=== PATIENT | male | born 1985 | race Caucasian/White ===

== ENCOUNTER 2019-08-31 13:35 | Emergency (ER) | payer SELFPAY ==
[2019-08-31] VITALS (7 sets, daily range): BP systolic 124–137; BP diastolic 71–91; PULSE 107–128; RESP 20; TEMP 37–37.2; O2SAT 97–100; BMI 43.4
--- NOTE | 2019-08-31 13:47 | XR_ITS ---
WS: [id number] PORTABLE CHEST HISTORY: cough and fever COMPARISON: 08/22/2016 Lungs are clear and well expanded. No pleural effusion or pneumothorax. Cardiac size: Normal. Mediastinum/Aorta: Normal mediastinum. No osseous abnormality seen. XR/XR chest 1V portable [id number] IMPRESSION: Unremarkable portable chest.
--- NOTE | 2019-08-31 13:48 | W.ED.FEVER ---
Documented by User: HAVEN Pena 09/03/19 17:49 HPI - Fever General: Chief Complaint: Fever Stated Complaint: fever Time Seen by Provider: 08/31/19 13:41 History of Present Illness: HPI Narrative: Patient is a 33-year-old male who comes to the ED with fever/chills and body aches that started 2 days ago. He was not able to measure his fever temperatures at home so they are subjective. sore throat for the past couple days as well along with fatigue and sleepiness. Denies any nasal congestion, cough, shortness of breath, nausea, vomiting, abdominal pain, dysuria, hematuria, diarrhea or constipation. Patient also states that he removed a tick on his abdomen this morning. He wanted to let me know that just in case that might be relevant. He was unsure how long the tick had been there and he says when he first pulled it out some of the tick was still embedded in his skin and he had to pull the other part out afterwards. Associated symptoms: Reports chills; Deny abdominal pain, back/flank pain, chest pain, diarrhea, dysuria, headache(s), nasal congestion, nausea or vomiting Review of Systems Const: Reports: fever, chills, body aches and fatigue Eyes: Denies: change in vision or eye discomfort ENMT: Reports: throat pain and enlarged tonsils; Denies: painful swallowing, nasal discharge or nasal congestion Card: Denies: chest pain, palpitations, edema, swelling of feet/ankles, shortness of breath on exertion or shortness of breath when lying down Resp: Denies: shortness of breath, productive cough or non-productive cough GI: Denies: abdominal pain, nausea, vomiting, diarrhea, constipation or blood in stool : Denies: flank pain, difficulty urinating, painful urination or blood in urine Musc: Denies: neck pain, back pain or extremity swelling Skin/Breast: Reports: new lesion (tick bite); Denies: rash Neuro: Denies: headache, numbness in extremities or weakness in extremities PFSH ED PFSH: Social History Smoking and tobacco status: former smoker Physical Exam Const: COMMON NORMALS: oriented x3 HENMT: COMMON NORMALS: normocephalic HEAD & SCALP: normocephalic MOUTH: oral and palatal mucosa normal THROAT: tonsils abnormal bilateral erythema, exudates and hypertrophy and posterior oropharynx abnormal edema and erythema Neck/C-Spine: COMMON NORMALS: supple GENERAL: Yes normal visual inspection Lymph: LYMPHATIC: lymphadenopathy (Mild to moderate anterior cervical nodes palpated?tender) Resp: COMMON NORMALS: normal respiratory effort, no retractions, no use of accessory muscles and clear to auscultation bilaterally AUSCULTATION: clear to auscultation bilaterally Cardio: COMMON NORMALS: regular rate, regular rhythm, S1 normal heart sound, S2 normal heart sound, no gallops, no clicks, no murmurs and peripheral pulses 2+ throughout RATE: regular rate RHYTHM: regular rhythm HEART SOUNDS: S1 normal and S2 normal PERIPHERAL PULSES: pulses 2+ throughout GI: COMMON NORMALS: normal to inspection, nondistended, normoactive bowel sounds, soft to palpation, non-tender and no masses PALPATION: Yes soft : COMMON NORMALS: Yes no CVA tenderness BLADDER/KIDNEY EXAM: Yes no CVA tenderness Back/Pelvis: COMMON NORMALS: no CVA tenderness Extremity: COMMON NORMALS: normal to inspection and normal capillary refill Neuro: COMMON NORMALS: oriented x3 and moves all extremities Skin: COMMON NORMALS: no rashes or lesions noted GENERAL SKIN EXAM: no rashes or lesions noted TRAUMA: other (Tick bite area?red bump present) OTHER: Erythema of the skin is extensive in the abdomen and appears to be due skin folds. Patient states the redness on abdomen where the skin fold is is not new and existed before tick bite. Course Consultations: Consultation #1: I consulted [facility] and spoke with Dr. Candelaria about patient's case and CT findings. She said surgery is not recommended and needed for this patient. She informed me to give patient IV antibiotics and steroid while here in the ED. she also wanted me to send patient home on clindamycin and Medrol Dosepak. She told me to have patient call [facility] ENT office to set up telephone checkup in a couple days. Time: 17:39 Vital Signs: Vital signs: Vital Signs Temperature 98.6 F 08/31/19 17:07 Pulse Rate 110 H 08/31/19 17:07 Respiratory Rate 20 H 08/31/19 13:43 Blood Pressure 124/71 08/31/19 17:07 Pulse Oximetry 100 08/31/19 17:07 MDM - Fever MDM Narrative: Medical decision making narrative: Patient is a 33-year-old male who comes into the ED with a sore throat. CBC was remarkable for a white blood cell count of 16.9. Influenza negative, mono negative and strep negative. CT of the neck was performed and showed 1. RIGHT peritonsillar bed phlegmon measuring 2.0 x 1.2 cm. 2. Significant bilateral cervical chain lymphadenopathy. Most significantly enlarged lymph nodes are at level 2 bilaterally. I consulted [facility] and spoke with Dr. Candelaria and she advised me on giving patient IV clindamycin and IV steroids while here in the ED. She told me to send patient home with a prescription for clindamycin and a Medrol pack. Dr. Candelaria also told me to have patient contact [facility] office tomorrow morning to set up a phone follow-up appointment to see how patient is doing. I gave patient contact information for [facility] and told him about the plan. He understood and agreed with plan. Lab Data: Labs: Lab Results 08/31/19 08/31/19 08/31/19 Range/Units 13:59 13:59 13:59 WBC 16.9 H (4.0-10.0) 10^3/ uL RBC 4.93 (4.1-5.3) 10^6/u L Hgb 14.6 (11.7-16.6) g/dL Hct 45.6 (42.0-52.0) % MCV 92.5 (80-94) fL MCH 29.6 (28.0-34.0) pg MCHC 32.0 (30.0-36.0) g/dL RDW 12.9 (12.1-15.1) % Plt Count 294 (130-400) 10^3/c mm MPV 10.8 H (7.4-10.4) fL Neut % (Auto) 69.2 % Lymph % (Auto) 17.7 % [place] % (Auto) 10.7 % Eos % (Auto) 1.6 % Baso % (Auto) 0.4 % Neut # (Auto) 11.7 H (1.8-7.7) 10^3/u L Lymph # (Auto) 3.0 (0.8-4.8) 10^3/u L [place] # (Auto) 1.8 H (0.2-0.9) 10^3/u L Eos # (Auto) 0.3 (0.0-0.8) 10^3/u L Baso # (Auto) 0.1 (0.0-0.1) 10^3/u L Nucleated RBC % (a uto) 0 % Nucleated RBCs # 0.0 /100WBC Sodium 137 (136-145) mmol/L Potassium 3.7 (3.5-5.1) mmol/L Chloride 101 (98-107) mmol/L Carbon Dioxide 23 (22-29) mmol/L Anion Gap 16.7 (5-19) BUN 8 (6-20) mg/dL Creatinine 1.0 (0.7-1.2) mg/dL GFR Calculation 85.5 L (90-130) mL/min Glucose 99 (65-115) mg/dL Calculated Osmolal ity 280 L (285-295) mOsm/k g Calcium 9.3 (8.5-10.5) mg/dL Total Bilirubin 0.8 (0.15-1.2) mg/dL AST 40 (0-40) U/L ALT 41 (0-41) U/L Alkaline Phosphata se 113 (40-130) IU/L Total Protein 6.7 (6.6-8.7) g/dL Albumin 3.7 (3.5-5.2) g/dL Globulin 3.0 (1.3-4.6) g/dL Lyme Ab (Western B lot) index Monoscreen Negative (Negative) Influenza Type A A g (Negative) Influenza Type B A g (Negative) Group A Strep Rapi d (Negative) 08/31/19 08/31/19 08/31/19 Range/Units 13:59 14:04 14:04 WBC (4.0-10.0) 10^3/ uL RBC (4.1-5.3) 10^6/u L Hgb (11.7-16.6) g/dL Hct (42.0-52.0) % MCV (80-94) fL MCH (28.0-34.0) pg MCHC (30.0-36.0) g/dL RDW (12.1-15.1) % Plt Count (130-400) 10^3/c mm MPV (7.4-10.4) fL Neut % (Auto) % Lymph % (Auto) % [place] % (Auto) % Eos % (Auto) % Baso % (Auto) % Neut # (Auto) (1.8-7.7) 10^3/u L Lymph # (Auto) (0.8-4.8) 10^3/u L [place] # (Auto) (0.2-0.9) 10^3/u L Eos # (Auto) (0.0-0.8) 10^3/u L Baso # (Auto) (0.0-0.1) 10^3/u L Nucleated RBC % (a uto) % Nucleated RBCs # /100WBC Sodium (136-145) mmol/L Potassium (3.5-5.1) mmol/L Chloride (98-107) mmol/L Carbon Dioxide (22-29) mmol/L Anion Gap (5-19) BUN (6-20) mg/dL Creatinine (0.7-1.2) mg/dL GFR Calculation (90-130) mL/min Glucose (65-115) mg/dL Calculated Osmolal ity (285-295) mOsm/k g Calcium (8.5-10.5) mg/dL Total Bilirubin (0.15-1.2) mg/dL AST (0-40) U/L ALT (0-41) U/L Alkaline Phosphata se (40-130) IU/L Total Protein (6.6-8.7) g/dL Albumin (3.5-5.2) g/dL Globulin (1.3-4.6) g/dL Lyme Ab (Western B lot) <0.90 index Monoscreen (Negative) Influenza Type A A g Negative (Negative) Influenza Type B A g Negative (Negative) Group A Strep Rapi d Negative (Negative) Imaging Data^: CXR: Attestation: I personally reviewed and interpreted this imaging study as follows: Radiologist's impression: [facility] of [address] [address] XRay Report Signed Patient: Rohan Miles Unit #: [id number] : 1985 Age/Sex: 33 / M ADM Date: 08/31/19 Loc: ER Room/Bed: Attending Dr: Ordering Provider/Ordering MD: James Denson Date of Service: 08/31/19 Procedure(s): XR chest 1V portable [id number] Accession Number(s): [id number] Report Number: [id number] WS: [id number] PORTABLE CHEST HISTORY: cough and fever COMPARISON: 08/22/2016 Lungs are clear and well expanded. No pleural effusion or pneumothorax. Cardiac size: Normal. Mediastinum/Aorta: Normal mediastinum. No osseous abnormality seen. XR/XR chest 1V portable [id number] IMPRESSION: Unremarkable portable chest. Dictated By: Supriya Duvall DO Signed By: Supriya Duvall DO Signed Date/Time: 08/31/191403 DD/ [address]: Attestation: I personally reviewed and interpreted this imaging study as follows: Radiologist's impression: [place] [address] CT Scan Report Signed Patient: Rohan Miles Unit #: [id number] : 1985 Age/Sex: 33 / M ADM Date: 08/31/19 Loc: ER Room/Bed: Attending Dr: Ordering Provider/Ordering MD: James Denson Date of Service: 08/31/19 Procedure(s): CT neck w con* [id number] Accession Number(s): [id number] Report Number: [id number] WS: [id number] CT NECK WITH CONTRAST HISTORY: swelling and tenderness TECHNIQUE: Contiguous 5 mm axial images are performed through the neck with intravenous contrast. Sagittal and coronal reformats are also submitted. All CT scans at [facility] use at least one of these dose optimization techniques: automated exposure control; mA and/or kV adjustment per patient size (includes targeted exams where dose is matched to clinical indication); or iterative reconstruction. CONTRAST: CONTRAST: Omnipaque 300; 95 mL IV. DLP: 872.12 mGy.cm COMPARISON: None available. Peritonsillar developing phlegmonous changes on the LEFT. There is an area of low attenuation surrounded by peripheral enhancement. Multiple small foci of low signal representing the developing abscess cavities. Collection measures 2.0 x 1.2 cm. There is mild asymmetry of the airway to enlargement of the LEFT peritonsillar bed. Torus tubarius and fossa of Rosenmuller and parapharyngeal fat are normal. Significant bilateral cervical chain lymphadenopathy. Hyperemic lymph nodes measure up to 1.5 cm at level 2. There are additional enlarged lymph nodes along level 2, 3 and level 5. Thyroid gland and salivary glands are normally enhancing with no masses. Straightening of the normal cervical lordosis. Visualized portions of the skull base demonstrate no abnormalities. Orbits and globes are within normal limits. No soft tissue masses. Mucous retention cyst in the RIGHT maxillary sinus. Smaller mucoperiosteal thickening or cyst at the floor the maxillary sinuses. Lung apices are clear. CT/CT neck w con* [id number] IMPRESSION: 1. RIGHT peritonsillar bed phlegmon measuring 2.0 x 1.2 cm. 2. Significant bilateral cervical chain lymphadenopathy. Most significantly enlarged lymph nodes are at level 2 bilaterally. Dictated By: Supriya Duvall DO Signed By: Supriya Duvall DO Signed Date/Time: 08/31/19 1604 DD/ 1558 Discharge Plan Discharge Patient Disposition: Home, Self-Care Clinical Impression: Peritonsillar cellulitis Condition: Stable Prescriptions: New clindamycin HCl 150 mg capsule 300 mg PO QID 7 Days Qty: 56 RF: 0 Medrol ([place]) 4 mg tablets,dose pack See Rx Instructions .ROUTE .COMPLEX Qty: 21 RF: 0 No Action No Known Home Medications RF: 0 Discharge Orders: Discharge Order (Routine); Ordered 08/31/19 Ordered By: James Denson Discharge Diet: Regular Discharge Activity: Resume usual activity Patient Instructions: Peritonsillar Abscess (ED) Activity Restrictions/Additional Instructions: Call [facility] ENT office tomorrow morning at [phone]. They would like to set up telephone checkup in a couple days. Take full course of antibiotics and steroid as prescribed. Take Tylenol or ibuprofen for fever. Drink plenty of fluids and stay hydrated. Return to the ED if you are having any trouble breathing or worsening symptoms. Discharge Date/Time: 08/31/19 19:01 Coding Level of Care Code ED Solution Manager for Chg Fwd Exam Comprehensive Documented by User: Jairo Reid DO 09/04/19 08:24 HPI - Fever General: Chief Complaint: Fever Stated Complaint: fever Time Seen by Provider: 08/31/19 13:41 PFSH ED PFSH: Social History Smoking and tobacco status: former smoker Course Vital Signs: Vital signs: Vital Signs Temperature 98.6 F 08/31/19 17:07 Pulse Rate 110 H 08/31/19 17:07 Respiratory Rate 20 H 08/31/19 13:43 Blood Pressure 124/71 08/31/19 17:07 Pulse Oximetry 100 08/31/19 17:07 MDM - Fever MDM Narrative: Medical decision making narrative: Reviewed patient with PA. Agree with assessment and plan Lab Data: Labs: Lab Results 08/31/19 08/31/19 08/31/19 Range/Units 13:59 13:59 13:59 WBC 16.9 H (4.0-10.0) 10^3/ uL RBC 4.93 (4.1-5.3) 10^6/u L Hgb 14.6 (11.7-16.6) g/dL Hct 45.6 (42.0-52.0) % MCV 92.5 (80-94) fL MCH 29.6 (28.0-34.0) pg MCHC 32.0 (30.0-36.0) g/dL RDW 12.9 (12.1-15.1) % Plt Count 294 (130-400) 10^3/c mm MPV 10.8 H (7.4-10.4) fL Neut % (Auto) 69.2 % Lymph % (Auto) 17.7 % [place] % (Auto) 10.7 % Eos % (Auto) 1.6 % Baso % (Auto) 0.4 % Neut # (Auto) 11.7 H (1.8-7.7) 10^3/u L Lymph # (Auto) 3.0 (0.8-4.8) 10^3/u L [place] # (Auto) 1.8 H (0.2-0.9) 10^3/u L Eos # (Auto) 0.3 (0.0-0.8) 10^3/u L Baso # (Auto) 0.1 (0.0-0.1) 10^3/u L Nucleated RBC % (a uto) 0 % Nucleated RBCs # 0.0 /100WBC Sodium 137 (136-145) mmol/L Potassium 3.7 (3.5-5.1) mmol/L Chloride 101 (98-107) mmol/L Carbon Dioxide 23 (22-29) mmol/L Anion Gap 16.7 (5-19) BUN 8 (6-20) mg/dL Creatinine 1.0 (0.7-1.2) mg/dL GFR Calculation 85.5 L (90-130) mL/min Glucose 99 (65-115) mg/dL Calculated Osmolal ity 280 L (285-295) mOsm/k g Calcium 9.3 (8.5-10.5) mg/dL Total Bilirubin 0.8 (0.15-1.2) mg/dL AST 40 (0-40) U/L ALT 41 (0-41) U/L Alkaline Phosphata se 113 (40-130) IU/L Total Protein 6.7 (6.6-8.7) g/dL Albumin 3.7 (3.5-5.2) g/dL Globulin 3.0 (1.3-4.6) g/dL Lyme Ab (Western B lot) index Monoscreen Negative (Negative) Influenza Type A A g (Negative) Influenza Type B A g (Negative) Group A Strep Rapi d (Negative) 08/31/19 08/31/19 08/31/19 Range/Units 13:59 14:04 14:04 WBC (4.0-10.0) 10^3/ uL RBC (4.1-5.3) 10^6/u L Hgb (11.7-16.6) g/dL Hct (42.0-52.0) % MCV (80-94) fL MCH (28.0-34.0) pg MCHC (30.0-36.0) g/dL RDW (12.1-15.1) % Plt Count (130-400) 10^3/c mm MPV (7.4-10.4) fL Neut % (Auto) % Lymph % (Auto) % [place] % (Auto) % Eos % (Auto) % Baso % (Auto) % Neut # (Auto) (1.8-7.7) 10^3/u L Lymph # (Auto) (0.8-4.8) 10^3/u L [place] # (Auto) (0.2-0.9) 10^3/u L Eos # (Auto) (0.0-0.8) 10^3/u L Baso # (Auto) (0.0-0.1) 10^3/u L Nucleated RBC % (a uto) % Nucleated RBCs # /100WBC Sodium (136-145) mmol/L Potassium (3.5-5.1) mmol/L Chloride (98-107) mmol/L Carbon Dioxide (22-29) mmol/L Anion Gap (5-19) BUN (6-20) mg/dL Creatinine (0.7-1.2) mg/dL GFR Calculation (90-130) mL/min Glucose (65-115) mg/dL Calculated Osmolal ity (285-295) mOsm/k g Calcium (8.5-10.5) mg/dL Total Bilirubin (0.15-1.2) mg/dL AST (0-40) U/L ALT (0-41) U/L Alkaline Phosphata se (40-130) IU/L Total Protein (6.6-8.7) g/dL Albumin (3.5-5.2) g/dL Globulin (1.3-4.6) g/dL Lyme Ab (Western B lot) <0.90 index Monoscreen (Negative) Influenza Type A A g Negative (Negative) Influenza Type B A g Negative (Negative) Group A Strep Rapi d Negative (Negative) Discharge Plan Discharge Patient Disposition: Home, Self-Care Clinical Impression: Peritonsillar cellulitis Condition: Stable Prescriptions: New clindamycin HCl 150 mg capsule 300 mg PO QID 7 Days Qty: 56 RF: 0 Medrol ([place]) 4 mg tablets,dose pack See Rx Instructions .ROUTE .COMPLEX Qty: 21 RF: 0 No Action No Known Home Medications RF: 0 Discharge Orders: Discharge Order (Routine); Ordered 08/31/19 Ordered By: James Denson Discharge Diet: Regular Discharge Activity: Resume usual activity Patient Instructions: Peritonsillar Abscess (ED) Activity Restrictions/Additional Instructions: Call [facility] ENT office tomorrow morning at [phone]. They would like to set up telephone checkup in a couple days. Take full course of antibiotics and steroid as prescribed. Take Tylenol or ibuprofen for fever. Drink plenty of fluids and stay hydrated. Return to the ED if you are having any trouble breathing or worsening symptoms. Discharge Date/Time: 08/31/19 19:01 Coding Level of Care Code ED Solution Manager for Josh Naranjo Exam Comprehensive
[2019-08-31 14:19] LABS: Basophils # 0.1 10^3/uL (0.0-0.1); Basophils % 0.4 %; Eosinophils # 0.3 10^3/uL (0.0-0.8); Eosinophils % 1.6 %; Hematocrit 45.6 % (42.0-52.0); Hemoglobin 14.6 g/dL (11.7-16.6); Lymphocytes % 17.7 %; Mean Corpuscular Hemoglobin 29.6 pg (28.0-34.0); Mean Corpuscular Volume 92.5 fL (80-94); Mean Platelet Volume 10.8 fL (7.4-10.4); Monocytes # 1.8 10^3/uL (0.2-0.9); Monocytes % 10.7 %; Neutrophils # 11.7 10^3/uL (1.8-7.7); Neutrophils % 69.2 %; Nucleated Red Blood Cells % 0 %; Platelet Count 294 10^3/cmm (130-400); Red Blood Count 4.93 10^6/uL (4.1-5.3); Red Cell Distribution Width 12.9 % (12.1-15.1); White Blood Count 16.9 10^3/uL (4.0-10.0)
--- NOTE | 2019-08-31 14:24 | PC.NURSE ---
Abd sound active, ABD soft not tender.
[2019-08-31 14:35] LABS: Alanine Aminotransferase 41 U/L (0-41); Albumin Level 3.7 g/dL (3.5-5.2); Alkaline Phosphatase 113 IU/L (40-130); Anion Gap 16.7 (5-19); Aspartate Amino Transferase 40 U/L (0-40); Blood Urea Nitrogen 8 mg/dL (6-20); Calcium 9.3 mg/dL (8.5-10.5); Carbon Dioxide 23 mmol/L (22-29); Chloride 101 mmol/L (98-107); Glomerular Filtration Rate 85.5 mL/min (90-130); Glucose 99 mg/dL (65-115); Osmolality Calculated 280 mOsm/kg (285-295); Potassium 3.7 mmol/L (3.5-5.1); Sodium 137 mmol/L (136-145); Total Bilirubin 0.8 mg/dL (0.15-1.2); Total Protein 6.7 g/dL (6.6-8.7)
[2019-08-31] MEDS: acetaminophen 500 mg Tablet PO (14:36)
[2019-08-31 14:40] LABS: Monoscreen Negative (Negative)
[2019-08-31 14:41] LABS: Rapid Strep A Test Negative (Negative)
[2019-08-31 14:52] LABS: Influenza A by IFA Negative (Negative); Influenza B by IFA Negative (Negative)
--- NOTE | 2019-08-31 15:13 | CT_ITS ---
WS: [id number] CT NECK WITH CONTRAST HISTORY: swelling and tenderness TECHNIQUE: Contiguous 5 mm axial images are performed through the neck with intravenous contrast. Sag ittal and coronal reformats are also submitted. All CT scans at [facility] use at least o ne of these dose optimization techniques: automated exposure control; mA and/or kV adjustment per pat ient size (includes targeted exams where dose is matched to clinical indication); or iterative recons truction. CONTRAST: CONTRAST: Omnipaque 300; 95 mL IV. DLP: 872.12 mGy.cm COMPARISON: None available. Peritonsillar developing phlegmonous changes on the LEFT. There is an area of low attenuation surroun ded by peripheral enhancement. Multiple small foci of low signal representing the developing abscess cavities. Collection measures 2.0 x 1.2 cm. There is mild asymmetry of the airway to enlargement of t he LEFT peritonsillar bed. Torus tubarius and fossa of Rosenmuller and parapharyngeal fat are normal. Significant bilateral cervical chain lymphadenopathy. Hyperemic lymph nodes measure up to 1.5 cm at l evel 2. There are additional enlarged lymph nodes along level 2, 3 and level 5. Thyroid gland and salivary glands are normally enhancing with no masses. Straightening of the normal cervical lordosis. Visualized portions of the skull base demonstrate no abnormalities. Orbits and globes are within norm al limits. No soft tissue masses. Mucous retention cyst in the RIGHT maxillary sinus. Smaller mucoperiosteal thickening or cyst at the floor the maxillary sinuses. Lung apices are clear. CT/CT neck w con* [id number] IMPRESSION: 1. RIGHT peritonsillar bed phlegmon measuring 2.0 x 1.2 cm. 2. Significant bilateral cervical chain lymphadenopathy. Most significantly en larged lymph nodes are at level 2 bilaterally.
[2019-08-31] MEDS: iohexol 300 mg/mL 100 mL Btl IV (15:55)
[2019-08-31] MEDS: clindamycin 150 mg Capsule 300 MG PO (17:31)
[2019-08-31] MEDS: doxycycline 100 mg Tablet 200 MG PO (17:32)
[2019-08-31] MEDS: dexamethasone 10 mg/mL INJ IVP (17:39)
[2019-08-31] MEDS: clindamycin 600 MG/50 ML PREMIX 100 MG IV (18:05)
[2019-09-02 13:41] LABS: Lyme AB Screen <0.90 index
[2019-09-04 16:47] LABS: E. Chaffeensis AB IGG <1:64; E. Chaffeensis AB IGM <1:20
[2019-09-07 15:36] LABS: RMSF IGG DETECTED; RMSF IGM NOT DETECTED
== END 2019-08-31 19:01 | disposition home or self-care (01) ==
PROVIDERS: Emergency Provider Physician Assistant
DX: J36 Peritonsillar abscess (principal); Z87.891 Personal history of nicotine dependence
CPT/HCPCS: 12345; 70491; 71045; 80053; 85025; 86308; 86618; 86666; 86757; 87081; 87804; 87880; 96365; 96366; 96374; 96375; 99283; 99284; J1100; J3490; Q9967

== ENCOUNTER 2019-10-11 03:32 | Emergency (ER) | payer SELFPAY ==
[2019-10-11] VITALS (21 sets, daily range): BP systolic 110–145; BP diastolic 67–117; PULSE 73–118; RESP 16–29; TEMP 36.4; O2SAT 90–98; BMI 54.2
--- NOTE | 2019-10-11 03:38 | XR_ITS ---
WS: [id number] PORTABLE CHEST HISTORY: ams COMPARISON: 08/31/2019 Decreased lung volumes. Crowding of the lung markings would probably improve with better inspiration. No pneumonia. No pleural effusion or pneumothorax. Cardiac size: Normal. Mediastinum/Aorta: Normal mediastinum. No osseous abnormality seen. XR/XR chest 1V portable [id number] IMPRESSION: Poor inspiration. Otherwise negative.
--- NOTE | 2019-10-11 03:38 | CTR_ITS ---
PROCEDURE INFORMATION: Exam: CT Head Without Contrast Exam date and time: 10/11/2019 4:00 AM Age: 34 years old Clinical indication: Altered mental status/memory loss; Additional info: AMS TECHNIQUE: Imaging protocol: Computed tomography of the head without contrast. Radiation optimization: All CT scans at this facility use at least one of these dose optimization techniques: automated exposure control; mA and/or kV adjustment per patient size (includes targeted exams where dose is matched to clinical indication); or iterative reconstruction. COMPARISON: No relevant prior studies available. RADIATION DOSE METRICS: Total DLP: 899.57 mGy-cm FINDINGS: Motion degradation. Brain: Normal. No hemorrhage. Unremarkable white matter. No mass effect. Ventricles: Normal. No ventriculomegaly. Bones/joints: Unremarkable. No acute fracture. Sinuses: Focal mucous retention cyst left maxillary sinus. No fluid levels. Mastoid air cells: Partial fluid or soft tissue opacification of the lateral left mastoid air cells with diminished aeration. Soft tissues: Unremarkable. CT/CT head wo con* [id number] IMPRESSION: No acute intracranial abnormality. Radiation Dose CTDIVOL = (mGy): DLP = 899.57 (mGy-cm)
--- NOTE | 2019-10-11 03:39 | ECG_ITS ---
Measurements Intervals [place] Rate: 115 P: 57 SD: 157 QRS: 29 QRSD: 85 T: 49 QT: 310 QTc: 430 SINUS TACHYCARDIA LOW QRS VOLTAGE IN PRECORDIAL LEADS [QRS DEFLECTION < 1.0 mV IN CHEST LEADS] NONSPECIFIC T-WAVE ABNORMALITY ABNORMAL RHYTHM ECG No previous ECG available for comparison Electronically Signed On 10-11-2019 19:44:54 CDT by Sony Enriquez M.D. [email or web address]
--- NOTE | 2019-10-11 03:39 | W.ED.AMS ---
Documented by User: Nicole Melissa MD 10/11/19 05:41 HPI - Altered Mental Status General: Chief Complaint: Shortness of Breath/Dyspnea Stated Complaint: SOB Time Seen by Provider: 10/11/19 03:37 Source: EMS Mode of arrival: EMS Limitations: altered mental status History of Present Illness: HPI narrative: 34-year-old male is here with EMS for altered mental status. Patient was found at a residence as they called patient to become unresponsive. Patient was given Narcan in route and has been vomiting. Patient w will respond to his name but is otherwise altered. Unknown if patient done any drugs or been drinking. No further history is available from patient. complaint: altered mental status Review of Systems General: Reports: ROS unobtainable due to mental status PFSH ED PFSH: Family History Mother Diabetes Social History Smoking and tobacco status: unknown if ever smoked Alcohol intake: current Substance/Drug Use: current Physical Exam Const: COMMON NORMALS: no apparent distress and healthy appearing EXAM LIMITATIONS: altered mental status GENERAL APPEARANCE: disheveled and lethargic ORIENTATION/CONSCIOUSNESS: Yes lethargic; not oriented to person, not oriented to place and not oriented to time HENMT: COMMON NORMALS: normocephalic and head/scalp atraumatic HEAD & SCALP: normocephalic and atraumatic Eye: COMMON NORMALS: PERRL and EOMs intact bilaterally PUPIL: Yes PERRL Neck/C-Spine: COMMON NORMALS: full ROM and supple Chest: COMMONS NORMALS: inspection of chest normal and palpation of chest normal Resp: COMMON NORMALS: normal respiratory effort, no retractions, no use of accessory muscles and clear to auscultation bilaterally AUSCULTATION: clear to auscultation bilaterally Cardio: COMMON NORMALS: regular rate, regular rhythm and no murmurs RATE: regular rate RHYTHM: regular rhythm GI: COMMON NORMALS: normal to inspection, nondistended, normoactive bowel sounds, soft to palpation, non-tender and no masses PALPATION: Yes soft Extremity: COMMON NORMALS: normal to inspection and full ROM Neuro: SENSORIUM/ORIENTATION: No oriented to person, No oriented to place, No oriented to time, Yes orientation impaired and Yes lethargic Psych: APPEARANCE: Yes disheveled Skin: COMMON NORMALS: no rashes or lesions noted and no wounds GENERAL SKIN EXAM: no rashes or lesions noted Course Vital Signs: Vital signs: Vital Signs Temperature 97.6 F 10/11/19 03:34 Pulse Rate 80 10/11/19 10:36 Respiratory Rate 16 10/11/19 10:36 Blood Pressure 113/76 10/11/19 10:36 Pulse Oximetry 98 10/11/19 10:36 MDM - Altered Mental Status MDM Narrative: Medical decision making narrative: 05 patient is now awake and answering all my questions. Patient states that they were doing drugs at his friend's house and states that they were smoking marijuana and wax form. He is unsure if he did any other drugs. Patient is now able answer all my questions appropriately and is a awake and alert x4. He states he does have slight neck pain from his previous peritonsillar abscess. Still pending CT of the head and neck. Patient's care turned over to Dr. Reid to follow urine along with CT head. Lab Data: Labs: Lab Results 10/11/19 10/11/19 10/11/19 Range/Units 03:48 03:48 03:48 WBC 19.2 H (4.0-10.0) 10^3/ uL RBC 5.04 (4.1-5.3) 10^6/u L Hgb 14.8 (11.7-16.6) g/dL Hct 47.2 (42.0-52.0) % MCV 93.7 (80-94) fL MCH 29.4 (28.0-34.0) pg MCHC 31.4 (30.0-36.0) g/dL RDW 13.3 (12.1-15.1) % Plt Count 413 H (130-400) 10^3/c mm MPV 11.6 H (7.4-10.4) fL Neut % (Auto) 71.8 % Lymph % (Auto) 18.2 % [place] % (Auto) 7.5 % Eos % (Auto) 1.3 % Baso % (Auto) 0.4 % Neut # (Auto) 13.8 H (1.8-7.7) 10^3/u L Lymph # (Auto) 3.5 (0.8-4.8) 10^3/u L [place] # (Auto) 1.4 H (0.2-0.9) 10^3/u L Eos # (Auto) 0.2 (0.0-0.8) 10^3/u L Baso # (Auto) 0.1 (0.0-0.1) 10^3/u L Nucleated RBC % (a uto) 0 % Nucleated RBCs # 0.0 /100WBC PT 13.40 H (10.5-13.3) SECO NDS INR 0.99 (0.8-1.2) Specimen Type Sample Site ABG pH (7.35-7.45) ABG pCO2 (35-45) mmHg ABG pO2 (80.0-100.0) mmH g ABG HCO3 (22-26) mmol/L ABG Base Excess (-2.0-2.0) mmol/ L [facility] Test Hematocrit (42-52) % O2 Delivery Device FiO2 % Detention Deputy ID Sodium 139 (136-145) mmol/L Potassium 4.5 (3.5-5.1) mmol/L Chloride 100 (98-107) mmol/L Carbon Dioxide 26 (22-29) mmol/L Anion Gap 17.5 (5-19) BUN 12 (6-20) mg/dL Creatinine 0.8 (0.7-1.2) mg/dL GFR Calculation 110.0 (90-130) mL/min Glucose 165 H (65-115) mg/dL POC Glucose (70-110) mg/dL Calculated Osmolal ity 288 (285-295) mOsm/k g Lactate (0.5-2.2) mmol/L Calcium 10.0 (8.5-10.5) mg/dL Total Bilirubin 0.6 (0.15-1.2) mg/dL AST 17 (0-40) U/L ALT 27 (0-41) U/L Alkaline Phosphata se 121 (40-130) IU/L Ammonia (16-60) umol/L Troponin I 6 Hour (0-15) ng/mL Troponin I Hi Sens Del (0-12) ng/L Troponin T Baselin e (0-15) ng/mL Troponin T 120 Min [place] (0-15) ng/mL Delta Troponin T (0-10) ABS# Total Protein 7.4 (6.6-8.7) g/dL Albumin 4.0 (3.5-5.2) g/dL Globulin 3.4 (1.3-4.6) g/dL Lipase 15 (13-60) U/L Salicylates < 0.3 L (3-10) mg/dL Urine Opiates Scre en (Negative) ng/mL Acetaminophen < 5.0 L (10-30) ug/mL Ur Barbiturates Sc reen (Negative) ng/mL Ur Phencyclidine S crn (Negative) ng/mL Ur Amphetamines Sc reen (Negative) ng/mL U Benzodiazepines Scrn (Negative) ng/mL Urine Cocaine Scre en (Negative) ng/mL U Marijuana (THC) Screen (Negative) ng/mL Ethyl Alcohol < 10 (0-10) mg/dL 10/11/19 10/11/19 10/11/19 Range/Units 03:48 04:00 04:06 WBC (4.0-10.0) 10^3/ uL RBC (4.1-5.3) 10^6/u L Hgb (11.7-16.6) g/dL Hct (42.0-52.0) % MCV (80-94) fL MCH (28.0-34.0) pg MCHC (30.0-36.0) g/dL RDW (12.1-15.1) % Plt Count (130-400) 10^3/c mm MPV (7.4-10.4) fL Neut % (Auto) % Lymph % (Auto) % [place] % (Auto) % Eos % (Auto) % Baso % (Auto) % Neut # (Auto) (1.8-7.7) 10^3/u L Lymph # (Auto) (0.8-4.8) 10^3/u L [place] # (Auto) (0.2-0.9) 10^3/u L Eos # (Auto) (0.0-0.8) 10^3/u L Baso # (Auto) (0.0-0.1) 10^3/u L Nucleated RBC % (a uto) % Nucleated RBCs # /100WBC PT (10.5-13.3) SECO NDS INR (0.8-1.2) Specimen Type Arterial Sample Site Radial, left ABG pH 7.38 (7.35-7.45) ABG pCO2 44.4 (35-45) mmHg ABG pO2 77.7 L (80.0-100.0) mmH g ABG HCO3 26.3 H (22-26) mmol/L ABG Base Excess 0.7 (-2.0-2.0) mmol/ L [facility] Test Pos Hematocrit 47.1 (42-52) % O2 Delivery Device None FiO2 21.0 % Detention Deputy ID [email or web address] Sodium (136-145) mmol/L Potassium (3.5-5.1) mmol/L Chloride (98-107) mmol/L Carbon Dioxide (22-29) mmol/L Anion Gap (5-19) BUN (6-20) mg/dL Creatinine (0.7-1.2) mg/dL GFR Calculation (90-130) mL/min Glucose (65-115) mg/dL POC Glucose 135 (70-110) mg/dL Calculated Osmolal ity (285-295) mOsm/k g Lactate (0.5-2.2) mmol/L Calcium (8.5-10.5) mg/dL Total Bilirubin (0.15-1.2) mg/dL AST (0-40) U/L ALT (0-41) U/L Alkaline Phosphata se (40-130) IU/L Ammonia (16-60) umol/L Troponin I 6 Hour (0-15) ng/mL Troponin I Hi Sens Del (0-12) ng/L Troponin T Baselin e 8 (0-15) ng/mL Troponin T 120 Min [place] (0-15) ng/mL Delta Troponin T (0-10) ABS# Total Protein (6.6-8.7) g/dL Albumin (3.5-5.2) g/dL Globulin (1.3-4.6) g/dL Lipase (13-60) U/L Salicylates (3-10) mg/dL Urine Opiates Scre en (Negative) ng/mL Acetaminophen (10-30) ug/mL Ur Barbiturates Sc reen (Negative) ng/mL Ur Phencyclidine S crn (Negative) ng/mL Ur Amphetamines Sc reen (Negative) ng/mL U Benzodiazepines Scrn (Negative) ng/mL Urine Cocaine Scre en (Negative) ng/mL U Marijuana (THC) Screen (Negative) ng/mL Ethyl Alcohol (0-10) mg/dL 10/11/19 10/11/19 10/11/19 Range/Units 06:30 06:30 07:20 WBC (4.0-10.0) 10^3/ uL RBC (4.1-5.3) 10^6/u L Hgb (11.7-16.6) g/dL Hct (42.0-52.0) % MCV (80-94) fL MCH (28.0-34.0) pg MCHC (30.0-36.0) g/dL RDW (12.1-15.1) % Plt Count (130-400) 10^3/c mm MPV (7.4-10.4) fL Neut % (Auto) % Lymph % (Auto) % [place] % (Auto) % Eos % (Auto) % Baso % (Auto) % Neut # (Auto) (1.8-7.7) 10^3/u L Lymph # (Auto) (0.8-4.8) 10^3/u L [place] # (Auto) (0.2-0.9) 10^3/u L Eos # (Auto) (0.0-0.8) 10^3/u L Baso # (Auto) (0.0-0.1) 10^3/u L Nucleated RBC % (a uto) % Nucleated RBCs # /100WBC PT (10.5-13.3) SECO NDS INR (0.8-1.2) Specimen Type Sample Site ABG pH (7.35-7.45) ABG pCO2 (35-45) mmHg ABG pO2 (80.0-100.0) mmH g ABG HCO3 (22-26) mmol/L ABG Base Excess (-2.0-2.0) mmol/ L [facility] Test Hematocrit (42-52) % O2 Delivery Device FiO2 % Detention Deputy ID Sodium (136-145) mmol/L Potassium (3.5-5.1) mmol/L Chloride (98-107) mmol/L Carbon Dioxide (22-29) mmol/L Anion Gap (5-19) BUN (6-20) mg/dL Creatinine (0.7-1.2) mg/dL GFR Calculation (90-130) mL/min Glucose (65-115) mg/dL POC Glucose (70-110) mg/dL Calculated Osmolal ity (285-295) mOsm/k g Lactate 2.0 (0.5-2.2) mmol/L Calcium (8.5-10.5) mg/dL Total Bilirubin (0.15-1.2) mg/dL AST (0-40) U/L ALT (0-41) U/L Alkaline Phosphata se (40-130) IU/L Ammonia 32 (16-60) umol/L Troponin I 6 Hour (0-15) ng/mL Troponin I Hi Sens Del (0-12) ng/L Troponin T Baselin e (0-15) ng/mL Troponin T 120 Min [place] 8.39 (0-15) ng/mL Delta Troponin T 0.39 (0-10) ABS# Total Protein (6.6-8.7) g/dL Albumin (3.5-5.2) g/dL Globulin (1.3-4.6) g/dL Lipase (13-60) U/L Salicylates (3-10) mg/dL Urine Opiates Scre en (Negative) ng/mL Acetaminophen (10-30) ug/mL Ur Barbiturates Sc reen (Negative) ng/mL Ur Phencyclidine S crn (Negative) ng/mL Ur Amphetamines Sc reen (Negative) ng/mL U Benzodiazepines Scrn (Negative) ng/mL Urine Cocaine Scre en (Negative) ng/mL U Marijuana (THC) Screen (Negative) ng/mL Ethyl Alcohol (0-10) mg/dL 10/11/19 10/11/19 Range/Units 07:38 09:53 WBC (4.0-10.0) 10^3/ uL RBC (4.1-5.3) 10^6/u L Hgb (11.7-16.6) g/dL Hct (42.0-52.0) % MCV (80-94) fL MCH (28.0-34.0) pg MCHC (30.0-36.0) g/dL RDW (12.1-15.1) % Plt Count (130-400) 10^3/c mm MPV (7.4-10.4) fL Neut % (Auto) % Lymph % (Auto) % [place] % (Auto) % Eos % (Auto) % Baso % (Auto) % Neut # (Auto) (1.8-7.7) 10^3/u L Lymph # (Auto) (0.8-4.8) 10^3/u L [place] # (Auto) (0.2-0.9) 10^3/u L Eos # (Auto) (0.0-0.8) 10^3/u L Baso # (Auto) (0.0-0.1) 10^3/u L Nucleated RBC % (a uto) % Nucleated RBCs # /100WBC PT (10.5-13.3) SECO NDS INR (0.8-1.2) Specimen Type Sample Site ABG pH (7.35-7.45) ABG pCO2 (35-45) mmHg ABG pO2 (80.0-100.0) mmH g ABG HCO3 (22-26) mmol/L ABG Base Excess (-2.0-2.0) mmol/ L [facility] Test Hematocrit (42-52) % O2 Delivery Device FiO2 % Detention Deputy ID Sodium (136-145) mmol/L Potassium (3.5-5.1) mmol/L Chloride (98-107) mmol/L Carbon Dioxide (22-29) mmol/L Anion Gap (5-19) BUN (6-20) mg/dL Creatinine (0.7-1.2) mg/dL GFR Calculation (90-130) mL/min Glucose (65-115) mg/dL POC Glucose (70-110) mg/dL Calculated Osmolal ity (285-295) mOsm/k g Lactate (0.5-2.2) mmol/L Calcium (8.5-10.5) mg/dL Total Bilirubin (0.15-1.2) mg/dL AST (0-40) U/L ALT (0-41) U/L Alkaline Phosphata se (40-130) IU/L Ammonia (16-60) umol/L Troponin I 6 Hour 8.11 (0-15) ng/mL Troponin I Hi Sens Del 0.11 (0-12) ng/L Troponin T Baselin e (0-15) ng/mL Troponin T 120 Min [place] (0-15) ng/mL Delta Troponin T (0-10) ABS# Total Protein (6.6-8.7) g/dL Albumin (3.5-5.2) g/dL Globulin (1.3-4.6) g/dL Lipase (13-60) U/L Salicylates (3-10) mg/dL Urine Opiates Scre en Negative (Negative) ng/mL Acetaminophen (10-30) ug/mL Ur Barbiturates Sc reen Negative (Negative) ng/mL Ur Phencyclidine S crn Negative (Negative) ng/mL Ur Amphetamines Sc reen Positive H (Negative) ng/mL U Benzodiazepines Scrn Negative (Negative) ng/mL Urine Cocaine Scre en Negative (Negative) ng/mL U Marijuana (THC) Screen Positive H (Negative) ng/mL Ethyl Alcohol (0-10) mg/dL Imaging Data^: CXR: Attestation: I personally reviewed and interpreted this imaging study as follows: My impression: no acute abnormality EKG Data^: EKG 1: Attestation: I personally reviewed and interpreted this EKG as follows: EKG interpretation date: 10/11/19 EKG interpretation time: 04:54 Interpretation: sinus tach hr [address] or t wave abnormalities qrs 85 qtc 378 Discharge Plan Discharge Patient Disposition: Admitted As Inpatient Discharge Date/Time: 10/11/19 10:36 Sign Out Sign Out Data: Patient Sign Out occurred on 10/11/19 at 06:02. Patient's care was discussed, and care was transferred from to Jairo Reid DO. Coding Level of Care Code ED Analyst [employer] for [employer]g Fwd Exam Comprehensive Documented by User: Jairo Reid DO 10/11/19 16:04 HPI - Altered Mental Status General: Chief Complaint: Shortness of Breath/Dyspnea Stated Complaint: SOB Time Seen by Provider: 10/11/19 03:37 [facility] ED PFSH: Family History Mother Diabetes Social History Smoking and tobacco status: unknown if ever smoked Alcohol intake: current Substance/Drug Use: current Course Vital Signs: Vital signs: Vital Signs Temperature 97.6 F 10/11/19 03:34 Pulse Rate 80 10/11/19 10:36 Respiratory Rate 16 10/11/19 10:36 Blood Pressure 113/76 10/11/19 10:36 Pulse Oximetry 98 10/11/19 10:36 MDM - Altered Mental Status MDM Narrative: Medical decision making narrative: After the CT was resulted reviewed and went in and see the patient he is difficult to arouse except with painful stimuli. Given his elevated white count and the questionable areas on the CT we went ahead and give him a dose of Unasyn. Organ to go ahead and put him on observation until he recovers. Consider giving him more Narcan however when he was given the previous dose reported he had significant nausea and vomiting. His saturations are normal now and is controlling his airway well at this point it may be better just left him resolve this with time. Have to keep a close eye on the questionable area of retropharyngeal abscess although it is not convincing on the CT at this time. He may need further follow-up with ENT. Lab Data: Labs: Lab Results 10/11/19 10/11/19 10/11/19 Range/Units 03:48 03:48 03:48 WBC 19.2 H (4.0-10.0) 10^3/ uL RBC 5.04 (4.1-5.3) 10^6/u L Hgb 14.8 (11.7-16.6) g/dL Hct 47.2 (42.0-52.0) % MCV 93.7 (80-94) fL MCH 29.4 (28.0-34.0) pg MCHC 31.4 (30.0-36.0) g/dL RDW 13.3 (12.1-15.1) % Plt Count 413 H (130-400) 10^3/c mm MPV 11.6 H (7.4-10.4) fL Neut % (Auto) 71.8 % Lymph % (Auto) 18.2 % [place] % (Auto) 7.5 % Eos % (Auto) 1.3 % Baso % (Auto) 0.4 % Neut # (Auto) 13.8 H (1.8-7.7) 10^3/u L Lymph # (Auto) 3.5 (0.8-4.8) 10^3/u L [place] # (Auto) 1.4 H (0.2-0.9) 10^3/u L Eos # (Auto) 0.2 (0.0-0.8) 10^3/u L Baso # (Auto) 0.1 (0.0-0.1) 10^3/u L Nucleated RBC % (a uto) 0 % Nucleated RBCs # 0.0 /100WBC PT 13.40 H (10.5-13.3) SECO NDS INR 0.99 (0.8-1.2) Specimen Type Sample Site ABG pH (7.35-7.45) ABG pCO2 (35-45) mmHg ABG pO2 (80.0-100.0) mmH g ABG HCO3 (22-26) mmol/L ABG Base Excess (-2.0-2.0) mmol/ L [place] Test Hematocrit (42-52) % O2 Delivery Device FiO2 % Detention Deputy ID Sodium 139 (136-145) mmol/L Potassium 4.5 (3.5-5.1) mmol/L Chloride 100 (98-107) mmol/L Carbon Dioxide 26 (22-29) mmol/L Anion Gap 17.5 (5-19) BUN 12 (6-20) mg/dL Creatinine 0.8 (0.7-1.2) mg/dL GFR Calculation 110.0 (90-130) mL/min Glucose 165 H (65-115) mg/dL POC Glucose (70-110) mg/dL Calculated Osmolal ity 288 (285-295) mOsm/k g Lactate (0.5-2.2) mmol/L Calcium 10.0 (8.5-10.5) mg/dL Total Bilirubin 0.6 (0.15-1.2) mg/dL AST 17 (0-40) U/L ALT 27 (0-41) U/L Alkaline Phosphata se 121 (40-130) IU/L Ammonia (16-60) umol/L Troponin I 6 Hour (0-15) ng/mL Troponin I Hi Sens Del (0-12) ng/L Troponin T Baselin e (0-15) ng/mL Troponin T 120 Min [place] (0-15) ng/mL Delta Troponin T (0-10) ABS# Total Protein 7.4 (6.6-8.7) g/dL Albumin 4.0 (3.5-5.2) g/dL Globulin 3.4 (1.3-4.6) g/dL Lipase 15 (13-60) U/L Salicylates < 0.3 L (3-10) mg/dL Urine Opiates Scre en (Negative) ng/mL Acetaminophen < 5.0 L (10-30) ug/mL Ur Barbiturates Sc reen (Negative) ng/mL Ur Phencyclidine S crn (Negative) ng/mL Ur Amphetamines Sc reen (Negative) ng/mL U Benzodiazepines Scrn (Negative) ng/mL Urine Cocaine Scre en (Negative) ng/mL U Marijuana (THC) Screen (Negative) ng/mL Ethyl Alcohol < 10 (0-10) mg/dL 10/11/19 10/11/19 10/11/19 Range/Units 03:48 04:00 04:06 WBC (4.0-10.0) 10^3/ uL RBC (4.1-5.3) 10^6/u L Hgb (11.7-16.6) g/dL Hct (42.0-52.0) % MCV (80-94) fL MCH (28.0-34.0) pg MCHC (30.0-36.0) g/dL RDW (12.1-15.1) % Plt Count (130-400) 10^3/c mm MPV (7.4-10.4) fL Neut % (Auto) % Lymph % (Auto) % [place] % (Auto) % Eos % (Auto) % Baso % (Auto) % Neut # (Auto) (1.8-7.7) 10^3/u L Lymph # (Auto) (0.8-4.8) 10^3/u L [place] # (Auto) (0.2-0.9) 10^3/u L Eos # (Auto) (0.0-0.8) 10^3/u L Baso # (Auto) (0.0-0.1) 10^3/u L Nucleated RBC % (a uto) % Nucleated RBCs # /100WBC PT (10.5-13.3) SECO NDS INR (0.8-1.2) Specimen Type Arterial Sample Site Radial, left ABG pH 7.38 (7.35-7.45) ABG pCO2 44.4 (35-45) mmHg ABG pO2 77.7 L (80.0-100.0) mmH g ABG HCO3 26.3 H (22-26) mmol/L ABG Base Excess 0.7 (-2.0-2.0) mmol/ L [facility] Test Pos Hematocrit 47.1 (42-52) % O2 Delivery Device None FiO2 21.0 % Detention Deputy ID [email or web address] Sodium (136-145) mmol/L Potassium (3.5-5.1) mmol/L Chloride (98-107) mmol/L Carbon Dioxide (22-29) mmol/L Anion Gap (5-19) BUN (6-20) mg/dL Creatinine (0.7-1.2) mg/dL GFR Calculation (90-130) mL/min Glucose (65-115) mg/dL POC Glucose 135 (70-110) mg/dL Calculated Osmolal ity (285-295) mOsm/k g Lactate (0.5-2.2) mmol/L Calcium (8.5-10.5) mg/dL Total Bilirubin (0.15-1.2) mg/dL AST (0-40) U/L ALT (0-41) U/L Alkaline Phosphata se (40-130) IU/L Ammonia (16-60) umol/L Troponin I 6 Hour (0-15) ng/mL Troponin I Hi Sens Del (0-12) ng/L Troponin T Baselin e 8 (0-15) ng/mL Troponin T 120 Min [place] (0-15) ng/mL Delta Troponin T (0-10) ABS# Total Protein (6.6-8.7) g/dL Albumin (3.5-5.2) g/dL Globulin (1.3-4.6) g/dL Lipase (13-60) U/L Salicylates (3-10) mg/dL Urine Opiates Scre en (Negative) ng/mL Acetaminophen (10-30) ug/mL Ur Barbiturates Sc reen (Negative) ng/mL Ur Phencyclidine S crn (Negative) ng/mL Ur Amphetamines Sc reen (Negative) ng/mL U Benzodiazepines Scrn (Negative) ng/mL Urine Cocaine Scre en (Negative) ng/mL U Marijuana (THC) Screen (Negative) ng/mL Ethyl Alcohol (0-10) mg/dL 10/11/19 10/11/19 10/11/19 Range/Units 06:30 06:30 07:20 WBC (4.0-10.0) 10^3/ uL RBC (4.1-5.3) 10^6/u L Hgb (11.7-16.6) g/dL Hct (42.0-52.0) % MCV (80-94) fL MCH (28.0-34.0) pg MCHC (30.0-36.0) g/dL RDW (12.1-15.1) % Plt Count (130-400) 10^3/c mm MPV (7.4-10.4) fL Neut % (Auto) % Lymph % (Auto) % [place] % (Auto) % Eos % (Auto) % Baso % (Auto) % Neut # (Auto) (1.8-7.7) 10^3/u L Lymph # (Auto) (0.8-4.8) 10^3/u L [place] # (Auto) (0.2-0.9) 10^3/u L Eos # (Auto) (0.0-0.8) 10^3/u L Baso # (Auto) (0.0-0.1) 10^3/u L Nucleated RBC % (a uto) % Nucleated RBCs # /100WBC PT (10.5-13.3) SECO NDS INR (0.8-1.2) Specimen Type Sample Site ABG pH (7.35-7.45) ABG pCO2 (35-45) mmHg ABG pO2 (80.0-100.0) mmH g ABG HCO3 (22-26) mmol/L ABG Base Excess (-2.0-2.0) mmol/ L [facility] Test Hematocrit (42-52) % O2 Delivery Device FiO2 % Detention Deputy ID Sodium (136-145) mmol/L Potassium (3.5-5.1) mmol/L Chloride (98-107) mmol/L Carbon Dioxide (22-29) mmol/L Anion Gap (5-19) BUN (6-20) mg/dL Creatinine (0.7-1.2) mg/dL GFR Calculation (90-130) mL/min Glucose (65-115) mg/dL POC Glucose (70-110) mg/dL Calculated Osmolal ity (285-295) mOsm/k g Lactate 2.0 (0.5-2.2) mmol/L Calcium (8.5-10.5) mg/dL Total Bilirubin (0.15-1.2) mg/dL AST (0-40) U/L ALT (0-41) U/L Alkaline Phosphata se (40-130) IU/L Ammonia 32 (16-60) umol/L Troponin I 6 Hour (0-15) ng/mL Troponin I Hi Sens Del (0-12) ng/L Troponin T Baselin e (0-15) ng/mL Troponin T 120 Min [place] 8.39 (0-15) ng/mL Delta Troponin T 0.39 (0-10) ABS# Total Protein (6.6-8.7) g/dL Albumin (3.5-5.2) g/dL Globulin (1.3-4.6) g/dL Lipase (13-60) U/L Salicylates (3-10) mg/dL Urine Opiates Scre en (Negative) ng/mL Acetaminophen (10-30) ug/mL Ur Barbiturates Sc reen (Negative) ng/mL Ur Phencyclidine S crn (Negative) ng/mL Ur Amphetamines Sc reen (Negative) ng/mL U Benzodiazepines Scrn (Negative) ng/mL Urine Cocaine Scre en (Negative) ng/mL U Marijuana (THC) Screen (Negative) ng/mL Ethyl Alcohol (0-10) mg/dL 10/11/19 10/11/19 Range/Units 07:38 09:53 WBC (4.0-10.0) 10^3/ uL RBC (4.1-5.3) 10^6/u L Hgb (11.7-16.6) g/dL Hct (42.0-52.0) % MCV (80-94) fL MCH (28.0-34.0) pg MCHC (30.0-36.0) g/dL RDW (12.1-15.1) % Plt Count (130-400) 10^3/c mm MPV (7.4-10.4) fL Neut % (Auto) % Lymph % (Auto) % [place] % (Auto) % Eos % (Auto) % Baso % (Auto) % Neut # (Auto) (1.8-7.7) 10^3/u L Lymph # (Auto) (0.8-4.8) 10^3/u L [place] # (Auto) (0.2-0.9) 10^3/u L Eos # (Auto) (0.0-0.8) 10^3/u L Baso # (Auto) (0.0-0.1) 10^3/u L Nucleated RBC % (a uto) % Nucleated RBCs # /100WBC PT (10.5-13.3) SECO NDS INR (0.8-1.2) Specimen Type Sample Site ABG pH (7.35-7.45) ABG pCO2 (35-45) mmHg ABG pO2 (80.0-100.0) mmH g ABG HCO3 (22-26) mmol/L ABG Base Excess (-2.0-2.0) mmol/ L [place] Test Hematocrit (42-52) % O2 Delivery Device FiO2 % Detention Deputy ID Sodium (136-145) mmol/L Potassium (3.5-5.1) mmol/L Chloride (98-107) mmol/L Carbon Dioxide (22-29) mmol/L Anion Gap (5-19) BUN (6-20) mg/dL Creatinine (0.7-1.2) mg/dL GFR Calculation (90-130) mL/min Glucose (65-115) mg/dL POC Glucose (70-110) mg/dL Calculated Osmolal ity (285-295) mOsm/k g Lactate (0.5-2.2) mmol/L Calcium (8.5-10.5) mg/dL Total Bilirubin (0.15-1.2) mg/dL AST (0-40) U/L ALT (0-41) U/L Alkaline Phosphata se (40-130) IU/L Ammonia (16-60) umol/L Troponin I 6 Hour 8.11 (0-15) ng/mL Troponin I Hi Sens Del 0.11 (0-12) ng/L Troponin T Baselin e (0-15) ng/mL Troponin T 120 Min [place] (0-15) ng/mL Delta Troponin T (0-10) ABS# Total Protein (6.6-8.7) g/dL Albumin (3.5-5.2) g/dL Globulin (1.3-4.6) g/dL Lipase (13-60) U/L Salicylates (3-10) mg/dL Urine Opiates Scre en Negative (Negative) ng/mL Acetaminophen (10-30) ug/mL Ur Barbiturates Sc reen Negative (Negative) ng/mL Ur Phencyclidine S crn Negative (Negative) ng/mL Ur Amphetamines Sc reen Positive H (Negative) ng/mL U Benzodiazepines Scrn Negative (Negative) ng/mL Urine Cocaine Scre en Negative (Negative) ng/mL U Marijuana (THC) Screen Positive H (Negative) ng/mL Ethyl Alcohol (0-10) mg/dL Discharge Plan Discharge Patient Disposition: Admitted As Inpatient Discharge Date/Time: 10/11/19 10:36 Sign Out Sign Out Data: Patient Sign Out occurred on 10/11/19 at 06:02. Patient's care was discussed, and care was transferred from to Jairo Reid DO. Coding Level of Care Code ED Analyst [employer] for [employer] Exam Comprehensive
--- NOTE | 2019-10-11 03:53 | PC.NURSE ---
patient unable to answer questions from nurse for assessment due to being unresponsive in the ED.
[2019-10-11 04:06] LABS: ABG PCO2 44.4 mmHg (35-45); ABG PH Result 7.38 (7.35-7.45); Arterial Blood Gas Hematocrit 47.1 % (42-52); Base Excess ABG 0.7 mmol/L (-2.0-2.0); Blood Gas Allen Test Pos; Blood Gas Sample Site Radial, left; Blood Gas Sample Type Arterial; HCO3 ABG 26.3 mmol/L (22-26); PO2 ABG 77.7 mmHg (80.0-100.0)
[2019-10-11 04:27] LABS: Glucose Point of Care 135 mg/dL (70-110)
[2019-10-11] MEDS: sodium chloride 0.9% 1,000 ML 999 ML IV (04:34)
[2019-10-11] MEDS: ondansetron 2 mg/ML SDV 2 mL 4 MG IVP (04:34)
[2019-10-11 04:54] LABS: Basophils # 0.1 10^3/uL (0.0-0.1); Basophils % 0.4 %; Eosinophils # 0.2 10^3/uL (0.0-0.8); Eosinophils % 1.3 %; Hematocrit 47.2 % (42.0-52.0); Hemoglobin 14.8 g/dL (11.7-16.6); Lymphocytes # 3.5 10^3/uL (0.8-4.8); Lymphocytes % 18.2 %; Mean Corpuscular HGB Conc 31.4 g/dL (30.0-36.0); Mean Corpuscular Hemoglobin 29.4 pg (28.0-34.0); Mean Corpuscular Volume 93.7 fL (80-94); Mean Platelet Volume 11.6 fL (7.4-10.4); Monocytes # 1.4 10^3/uL (0.2-0.9); Monocytes % 7.5 %; Neutrophils # 13.8 10^3/uL (1.8-7.7); Neutrophils % 71.8 %; Nucleated Red Blood Cells % 0 %; Platelet Count 413 10^3/cmm (130-400); Red Blood Count 5.04 10^6/uL (4.1-5.3); Red Cell Distribution Width 13.3 % (12.1-15.1); White Blood Count 19.2 10^3/uL (4.0-10.0)
[2019-10-11 05:02] LABS: INR 0.99 (0.8-1.2)
[2019-10-11 05:10] LABS: Alanine Aminotransferase 27 U/L (0-41); Alkaline Phosphatase 121 IU/L (40-130); Anion Gap 17.5 (5-19); Aspartate Amino Transferase 17 U/L (0-40); Blood Urea Nitrogen 12 mg/dL (6-20); Carbon Dioxide 26 mmol/L (22-29); Chloride 100 mmol/L (98-107); Globulin 3.4 g/dL (1.3-4.6); Glucose 165 mg/dL (65-115); Lipase 15 U/L (13-60); Osmolality Calculated 288 mOsm/kg (285-295); Potassium 4.5 mmol/L (3.5-5.1); Sodium 139 mmol/L (136-145); Total Bilirubin 0.6 mg/dL (0.15-1.2); Total Protein 7.4 g/dL (6.6-8.7); Troponin(5th) Baseline 8 ng/mL (0-15)
[2019-10-11 05:14] LABS: Acetaminophen < 5.0 ug/mL (10-30); Alcohol Level < 10 mg/dL (0-10); Salicylate < 0.3 mg/dL (3-10)
--- NOTE | 2019-10-11 05:23 | CTR_ITS ---
PROCEDURE INFORMATION: Exam: CT Neck With Contrast Exam date and time: 10/11/2019 5:33 AM Age: 34 years old Clinical indication: Condition or disease; Other: Peritonsilar abscess; Additional info: HX peritonsilar abscess TECHNIQUE: Imaging protocol: Computed tomography images of the neck with intravenous contrast. Radiation optimization: All CT scans at this facility use at least one of these dose optimization techniques: automated exposure control; mA and/or kV adjustment per patient size (includes targeted exams where dose is matched to clinical indication); or iterative reconstruction. Contrast material: OMNI 300; Contrast volume: 95 ml; Contrast route: IV; COMPARISON: CT neck w con* [id number] 08/31/2019 3:52 PM RADIATION DOSE METRICS: Total DLP: 876.18 mGy-cm FINDINGS: Sinuses: Mucous retention cyst left maxillary sinus. Nasopharynx: Unremarkable. Oropharynx: Mildly accentuated soft tissues at the tonsillar fossa bilaterally. Hypopharynx: Unremarkable. Larynx: Unremarkable. Normal epiglottis. Retropharyngeal space: Unremarkable. Submandibular/Parotid glands: Normal. Glands are normal in size. Thyroid: Normal. No enlarged or calcified nodules. Lymph nodes: Small anterior and posterior cervical chain lymph nodes. Trachea: Visualized trachea is unremarkable. Lungs: Unremarkable as visualized. Bones/joints: Unremarkable. No acute fracture. Soft tissues: Slight accentuation of soft tissues and obscuration of the left piriform sinus of supraglottic laryngeal soft tissues. No typical enhancement for soft tissue abscess. CT/CT neck w con* [id number] IMPRESSION: 1. Accentuation of soft tissues at the tonsillar fossa which could reflect tonsillitis. 2. Asymmetry of left piriform sinus which could be related to phase of respiration or underlying supraglottic laryngeal changes of edema or laryngitis. 3. Cervical adenopathy probably reactive. Radiation Dose CTDIVOL = (mGy): DLP = 876.18 (mGy-cm)
[2019-10-11] MEDS: iohexol 300 mg/mL 100 mL Btl IV (05:35)
--- NOTE | 2019-10-11 05:39 | ECG_ITS ---
Measurements Intervals [place] Rate: 93 P: 39 OK: 160 QRS: 22 QRSD: 81 T: 36 QT: 339 QTc: 423 SINUS RHYTHM No previous ECG available for comparison Electronically Signed On 10-11-2019 19:48:13 CDT by Sony Enriquez M.D. [email or web address]
[2019-10-11 06:50] LABS: Ammonia 32 umol/L (16-60)
--- NOTE | 2019-10-11 07:24 | PC.NURSE ---
Patient encouraged to provide urine sample. Patient attempting now.
[2019-10-11 07:50] LABS: Troponin 5 2HR 8.39 ng/mL (0-15); Troponin 5 2HR Delta 0.39 ABS# (0-10)
[2019-10-11 08:05] LABS: Amphetamines Screen Urine Positive (Negative); Benzodiazepines Screen Urine Negative (Negative); Cocaine Screen Urine Negative (Negative); Opiate Screen Urine Negative (Negative); PCP Screen Urine Negative (Negative); THC Screen Urine Positive (Negative)
[2019-10-11 08:36] LABS: Barbiturates Screen Urine Negative (Negative)
--- NOTE | 2019-10-11 10:13 | PC.NURSE ---
3rd troponin and ECG collected
[2019-10-11 10:14] LABS: Troponin 5 6HR 8.11 ng/mL (0-15); Troponin 5 6HR Delta 0.11 ng/L (0-12)
[2019-10-11] MEDS: ampicillin-sulbactam 3 GM in sodium chloride 0.9% (plus) 50 ML IV (10:25)
== END 2019-10-11 10:36 | disposition admitted as inpatient to this hospital (09) ==
PROVIDERS: Emergency Medicine; Emergency Provider Family Medicine
DX: R06.02 Shortness of breath (principal)
CPT/HCPCS: 12345; 36416; 36600; 70450; 70491; 71045; 80053; 80306; 80307; 82140; 82803; 82962; 83605; 83690; 84484; 85025; 85610; 93005; 96365; 96375; 99284; 99285; J0295; J2405; J7030; Q9967

== ENCOUNTER 2019-10-11 08:45 | Observation (INO) | payer SELFPAY ==
--- NOTE | 2019-10-11 11:17 | PM.HP ---
Providers/Chief Complaint Admitting Physician: Omi Sarkar MD Primary Care Provider: Omi Sarkar MD Chief Complaint: ALTERED MENTAL STATUS History of Present Illness Rohan Miles is a 34 year old male with no significant past medical history who presents to [facility] due to altered mental status. During my examination, patient is alert oriented x3, answers all questions appropriate, follows all commands. Apparently down to the emergency room, patient was not responding appropriately, after Narcan, was quite drowsy, so hospitalist team was called for admission. Patient states that the last thing he remembered, he was at a democr[employer] with his friends last night, he took some THC, he does state that after he took the THC he felt a bit short of breath and that the last thing he remembers. According to ER physician, and patient's friends patient was found at his residence and he was nonresponsive, he was given Narcan in route, he was vomiting. Patient would respond to stimuli, would become very drowsy. Patient denies any fevers, chills, cough, dysphagia, odynophagia, travel, exposure to COVID-19. Patient states that he was in the emergency room over a month ago for fever, chills body aches, sore throat mono negative was negative, strep was negative, CT of the head showed a left peritonsillar phlegmon, bilateral cervical lymphadenopathy,. ENT was consulted through the ER, patient did receive clindamycin, steroid. Discharged on clindamycin and a Medrol Dosepak. But patient states that he could not afford the medication, has not been taking the medication. Patient states he has been doing fine, no dysphasia, no odynophagia, no sore throat, no fevers, no neck pain. Currently patient denies any significant headaches, blurry vision, nausea, vomiting, lightheadedness, dizziness, abdominal pain, diarrhea, dysuria, falls commands, alert oriented x3. Denies drinking alcohol last night. Denies any other drug use. Denies any K2 or PCP use. He denies any roofline use. Review of Systems Const: Denies: fever, chills, fatigue or malaise Eyes: Denies: change in vision or blurry vision ENMT: Denies: nasal congestion Resp: Denies: shortness of breath, productive cough, non-productive cough or wheezing GI: Denies: abdominal pain, nausea, vomiting, vomiting blood, diarrhea, constipation, blood in stool or black tarry stool : Denies: flank pain, difficulty urinating, painful urination or urinary frequency Musc: Denies: neck pain or back pain Skin/Breast: Denies: rash Neuro: Denies: headache, dizziness or vertigo Psych: Denies: anxiety or depression Endo: Denies: excessive urination or excessive thirst Medications/Allergies Home Medications Medication Instructions Recorded Confirmed Last Taken Type No Known Home Medications 08/31/19 10/11/19 Unknown History Allergies Allergy/AdvReac Type Severity Reaction Status Date / Time No Known Allergies Allergy Verified 08/31/19 13:45 PFSH Acute PFSH: Family History (Updated 10/11/19 @ 11:26 by Omi Sarkar MD) Mother Diabetes Social History (Updated 10/11/19 @ 11:26 by Omi Sarkar MD) Smoking and tobacco status: unknown if ever smoked Alcohol intake: current Substance/Drug Use: current Physical Exam Const: COMMON NORMALS: no apparent distress and oriented x3 GENERAL APPEARANCE: cooperative and comfortable HENMT: COMMON NORMALS: normocephalic HEAD & SCALP: normocephalic Eye: COMMON NORMALS: PERRL, EOMs intact bilaterally and no papilledema GENERAL EYE: normal appearance of both eyes PUPIL: Yes PERRL DIRECT OPHTHALMOSCOPY: Yes no papilledema Neck/C-Spine: COMMON NORMALS: full ROM, no lymphadenopathy, no JVD and thyroid normal THYROID: thyroid normal Lymph: LYMPHATIC: no lymphadenopathy noted Resp: COMMON NORMALS: normal respiratory effort, no retractions, no use of accessory muscles and clear to auscultation bilaterally AUSCULTATION: clear to auscultation bilaterally Cardio: COMMON NORMALS: no JVD, regular rate, regular rhythm, S1 normal heart sound, S2 normal heart sound, no gallops, no clicks and no murmurs RATE: regular rate RHYTHM: regular rhythm HEART SOUNDS: S1 normal and S2 normal GI: COMMON NORMALS: normal to inspection, nondistended, normoactive bowel sounds, soft to palpation, non-tender and no hepatosplenomegaly PALPATION: Yes soft and Yes no hepatosplenomegaly Extremity: COMMON NORMALS: normal to inspection, full ROM and no pedal edema Neuro: COMMON NORMALS: oriented x3, CN's II-XII intact bilaterally, moves all extremities and no focal motor deficits Psych: COMMON NORMALS: mental status grossly normal, thought process normal and cooperative THOUGHT PROCESS: normal thought process A&P Assessment and plan (1) Altered mental status: -Secondary to THC and methamphetamines -Currently alert oriented x3, follows all commands Status: Acute (2) Peritonsillar cellulitis: -Patient presents to the ER on 08/31/2019 was diagnosed with left peritonsillar cellulitis, did not use any antibiotics or steroids as he could not afford it neck CT showed left peritonsillar bed phlegmon measuring 2.0 x 1.2 cm. 2. Significant bilateral cervical chain lymphadenopathy. Most significantly enlarged lymph nodes are at level 2 bilaterally. -Today patient white blood cell count is 19,000, pro-Misbah, CRP, throat culture pending, neck CT Accentuation of soft tissues at the tonsillar fossa which could reflect tonsillitis. 2. Asymmetry of left piriform sinus which could be related to phase of respiration or underlying supraglottic laryngeal changes of edema or laryngitis. 3. Cervical adenopathy probably reactive. -Patient is asymptomatic, no fevers, no dysphagia, no odynophagia, no sore throat, no foul taste in the back of his throat, no neck pain -I spoke to Dr. Duvall, stated that the patient's peritonsillar phlegmon dissection on the left, compared to CT scan on 08/31/2019, tonsil appears improved, cervical lymphadenopathy appears improved Plan: -We will discharge the patient on clindamycin -We will have patient follow-up with Dr. Moore -Pro-Misbah, CRP, throat culture -.I spoke to Dr. Moore, who agrees with above plan Status: Acute Attestations Medical Necessity Statement*: Patient requires admission, outpatient with observation, for altered mental status, peritonsillar abscess, will be discharged later on today Coding Level of Care Code Acute Client Services Account Manager for [facility] Diagnoses Altered mental status R41.82 Peritonsillar cellulitis J36
[2019-10-11 11:24] VITALS: RESP 18
[2019-10-11 11:25] VITALS: BP 96/65; PULSE 68; RESP 20; TEMP 36.6; O2SAT 97
[2019-10-11 11:33] VITALS: RESP 20
--- NOTE | 2019-10-11 11:49 | P.DS_ITS ---
Discharge Providers Date of Admission: 10/11/19 08:45 Date of Discharge: October 11, 2019 Attending Provider at Admission: Omi Sarkar MD Attending Provider at Discharge: Omi Sarkar MD Primary Care Provider: Omi Sarkar MD Diagnoses at Discharge Discharge Diagnosis (1) Altered mental status: Status: Acute (2) Peritonsillar cellulitis: Status: Acute Reason for Visit Reason for Visit: Reason For Visit: ALTERED MENTAL STATUS Hospital Course Discharge Summary: This is a 34-year-old male with no significant past medical history who presents to [facility] due to altered mental status. For patient's altered mental status, likely secondary to THC and methamphetamine, patient was admitted to the ER due to drowsiness, confusion, as soon as he came to the general medical floors he is alert and oriented x3, follows all commands, his mentation with remained within normal limits, answering all questions appropriately. Patient was discharged home with instructions to abstain from THC and methamphetamine use Peritonsillar cellulitis: -Patient presents to the ER on 08/31/2019 was diagnosed with left peritonsillar cellulitis, did not use any antibiotics or steroids as he could not afford it neck CT showed left peritonsillar bed phlegmon measuring 2.0 x 1.2 cm. 2. Significant bilateral cervical chain lymphadenopathy. Most significantly enlarged lymph nodes are at level 2 bilaterally. -Today patient white blood cell count is 19,000, neck CT Accentuation of soft tissues at the tonsillar fossa which could reflect tonsillitis. 2. Asymmetry of left piriform sinus which could be related to phase of respiration or underlying supraglottic laryngeal changes of edema or laryngitis. 3. Cervical adenopathy probably reactive. -Patient is asymptomatic, no fevers, no dysphagia, no odynophagia, no sore throat, no foul taste in the back of his throat, no neck pain -I spoke to Dr. Duvall, stated that the patient's peritonsillar phlegmon dissection on the left, compared to CT scan on 08/31/2019, tonsil appears improved, cervical lymphadenopathy appears improved -Plan is to discharge the patient on 14 days of clindamycin -Patient was advised if he were to have fevers, chills, nausea, vomiting, neck pain, dysphasia, odynophagia, sore throat to come back to emergency room -I obtained throat cultures, and strep cultures on discharge -Patient is to follow-up with Dr. Moore in 1 to 2 weeks, I spoke to Dr. Moore, who agrees with above plan Physical Exam Const: COMMON NORMALS: no apparent distress and oriented x3 GENERAL APPEARANCE: cooperative and comfortable HENMT: COMMON NORMALS: normocephalic HEAD & SCALP: normocephalic Eye: COMMON NORMALS: PERRL, EOMs intact bilaterally and no papilledema G ENERAL EYE: normal appearance of both eyes PUPIL: Yes PERRL DIRECT OPHTHALMOSCOPY: Yes no papilledema Neck/C-Spine: COMMON NORMALS: full ROM, no lymphadenopathy, no JVD and thyroid normal THYROID: thyroid normal Lymph: LYMPHATIC: no lymphadenopathy noted Resp: COMMON NORMALS: normal respiratory effort, no retractions, no use of accessory muscles and clear to auscultation bilaterally AUSCULTATION: clear to auscultation bilaterally Cardio: COMMON NORMALS: no JVD, regular rate, regular rhythm, S1 normal heart sound, S2 normal heart sound, no gallops, no clicks and no murmurs RATE: regu lar rate RHYTHM: regular rhythm HEART SOUNDS: S1 normal and S2 normal GI: COMMON NORMALS: normal to inspection, nondistended, normoactive bowel sounds, soft to palpation, non-tender and no hepatosplenomegaly PALPATION: Yes soft and Yes no hepatosplenomegaly Extremity: COMMON NORMALS: normal to inspection, full ROM and no pedal edema Neuro: COMMON NORMALS: oriented x3, CN's II-XII intact bilaterally, moves all extremities and no focal motor deficits Psych: COMMON NORMALS: mental status grossly normal, thought process normal and cooperative THOUGHT PROCESS: normal thought process Discharge Data Data Completed and Pending: Pending at discharge Category Date Time Status C Reactive Protei n Stat Lab 10/11/19 09:53 Received Procalcitonin Sta t Lab 10/11/19 09:53 Received Streptococcus Cul ture Group A Stat Lab 10/11/19 11:[address] at Lab 10/11/19 11:10 Uncollected Vitals: Last Vital Signs Temp 97.8 F 10/11/19 11:25 Pulse 68 10/11/19 11:25 Resp 20 H 10/11/19 11:25 BP 96/65 10/11/19 11:25 Pulse Ox 97 10/11/19 11:25 Discharge Plan Discharge Patient Disposition: Home, Self-Care Condition: Stable Prescriptions: New clindamycin HCl 300 mg capsule 600 mg PO Q8H 14 Days Qty: 84 RF: 0 No Action No Known Home Medications RF: 0 Discharge Orders: Discharge Order (Routine); Ordered 10/11/19 Ordered By: Omi Sarkar Referrals: Rajesh Moore MD [Physician] - 1 week (peritonisllar cellulitis) Discharge Diet: Regular Discharge Activity: Resume usual activity Patient Instructions: Peritonsillar Abscess (DC), Abuse of Alcohol (GEN), Cannabis Abuse (GEN) Activity Restrictions/Additional Instructions: -If you have fevers, neck pain, difficulty swallowing, painful swallowing, neck swelling, sore throat please come back to the emergency room Discharge Attestations Time Spent in Discharge Care*: less than 30 min Quality Metrics Clinical Quality Measures During this hospital stay, did patient experience: None Coding Level of Care Code Acute Demolition Specialist for [facility] Diagnoses Altered mental status R41.82 Peritonsillar cellulitis J36
[2019-10-11 12:00] VITALS: BP 96/65; PULSE 68; RESP 18; TEMP 36.6; O2SAT 97
[2019-10-11 13:35] LABS: Procalcitonin 0.17 ng/mL (0-0.5)
[2019-10-11 13:58] LABS: C Reactive Protein 7.9 mg/L (0.0-4.9)
[2019-10-11] MEDS: enoxaparin 40 mg/0.4 mL Syringe SUBCUT (13:58)
[2019-10-11] MEDS: sodium chloride 0.9% 1,000 ML 75 ML IV (13:58)
[2019-10-11 16:11] VITALS: BP 96/65; PULSE 68; RESP 18; TEMP 36.6; O2SAT 97
== END 2019-10-11 15:30 | disposition home or self-care (01) ==
PROVIDERS: Admitting Provider Family Medicine; PCP Family Medicine; Visit Provider Family Medicine
DX: R41.82 Altered mental status, unspecified (principal); J36 Peritonsillar abscess; Z83.3 Family history of diabetes mellitus
CPT/HCPCS: 12345; 84145; 86140; 87070; 96372; G0378; G0379; J1650; J7030

== ENCOUNTER 2022-03-02 18:43 | Emergency (ER) | payer SELFPAY ==
[2022-03-02 18:47] VITALS: BP 131/83; PULSE 134; RESP 22; TEMP 37; O2SAT 98; BMI 27.8
--- NOTE | 2022-03-02 19:13 | W.ED.SKABFB ---
HPI - Skin/Abscess/Foreign Bdy General: Chief complaint: Skin/Abscess/Foreign Body Stated complaint: shoulder pain; cold chills Time Seen by Provider: 03/02/22 19:01 Source: patient Mode of arrival: ambulatory Limitations: no limitations History of Present Illness: 36-year-old male who presents here with an abscess to his upper back. He actually has 2 abscesses one on the right and 1 to the left side he states has been there for 2 to 3 weeks he has pain he rates a 8 out of 10 denies any fever he has had some drainage from the wounds. Associated symptoms: Deny chills, fever(s), nausea or vomiting Review of Systems Const: Denies: fever(s), chills, body aches or change in appetite Eyes: Denies: blurry vision or eye discomfort ENMT: Denies: throat pain or dental pain Card: Denies: chest pain Resp: Denies: dyspnea GI: Denies: abdominal pain, nausea, vomiting or diarrhea : Denies: dysuria Musc: Denies: neck pain or back pain Skin/Breast: Denies: rash Neuro: Denies: headache(s) Psych: Denies: depression Sabas/Lymph: Denies: easy bruising All/Imm: Denies: urticaria PFSH ED PFSH: Family History Mother Diabetes Social History Smoking and tobacco status: unknown if ever smoked Alcohol intake: current Physical Exam Const: COMMON NORMALS: no acute distress, patient oriented x3 and healthy appearing HENMT: COMMON NORMALS: normocephalic and atraumatic HEAD & SCALP: normocephalic and atraumatic Eye: COMMON NORMALS: EOMs intact bilaterally and conjunctivae normal CONJUNCTIVA: Yes conjunctivae normal Neck/C-Spine: COMMON NORMALS: full ROM and supple Chest: COMMONS NORMALS: normal inspection of the chest Resp: COMMON NORMALS: normal respiratory effort Cardio: COMMON NORMALS: regular rate and No murmurs present (Cardio) RATE: regular rate GI: INSPECTION: Yes normal to inspection Back/Pelvis: OTHER: 2 4cm abscesses to upper back Extremity: COMMON NORMALS: normal to inspection and full ROM Neuro: COMMON NORMALS: patient oriented x3, moves all extremities and no focal motor deficits Psych: COMMON NORMALS: mental status grossly normal, Normal thought process present and cooperative THOUGHT PROCESS: Normal thought process present Skin: COMMON NORMALS: no rashes or lesions noted GENERAL SKIN EXAM: no rashes or lesions noted Procedures Abscess I/D Site: back (2 rupper back and left upper back) Local Anesthetic: lidocaine 1% Amount of anesthesia used (mL): 12 Technique: incised with #11 blade Packing used?: iodoform Course Vital Signs: Vital signs: Vital Signs Temperature 98.6 F 03/02/22 18:47 Pulse Rate 134 H 03/02/22 18:47 Respiratory Rate 22 H 03/02/22 18:47 Blood Pressure 131/83 03/02/22 18:47 Pulse Oximetry 98 03/02/22 18:47 Oxygen Delivery Me thod 03/02/22 18:47 MDM - Skin/Abscess/Foreign Bdy Medicial Decision Making Patient presents here with 2 abscesses to his upper back I did incise and drain and placed packing we will place him on antibiotics he is to return in 2 days for removal of packing recheck he is return if worsening. Discharge Plan Discharge Patient Disposition: Home Clinical Impression: Abscess of skin or subcutaneous tissue Condition: Stable Prescriptions: New hydrocodone-acetaminophen 5-325 mg tablet 1 tab PO Q6H PRN (Reason: pain) Qty: 14 0RF sulfamethoxazole-trimethoprim [Bactrim DS] 800-160 mg tablet 1 tab PO BID 10 Days Qty: 20 0RF Discharge Orders: Discharge ED (Routine); Ordered 03/02/22 Ordered By: Nicole Melissa Discharge Diet: Advance as tolerated Discharge Activity: Resume usual activity Patient Instructions: Abscess (ED), Opioid Safety Coding Level of Care Code ED Communications Planner for [facility] Naranjo
[2022-03-02] MEDS: HYDROcodone-acetaminophen 5-325 mg Tablet 1 TAB PO (19:19)
[2022-03-02] MEDS: sulfamethoxazole-trimeth DS 160-800 mg Tablet 1 TAB PO (19:20)
== END 2022-03-02 19:52 | disposition home or self-care (01) ==
PROVIDERS: Emergency Provider Emergency Medicine
DX: L02.212 Cutaneous abscess of back [any part, except buttock and flank] (principal)
CPT/HCPCS: 10060; 10061; 99283

== ENCOUNTER 2022-03-04 17:18 | Emergency (ER) | payer SELFPAY ==
[2022-03-04 17:29] VITALS: BP 132/82; PULSE 103; RESP 16; TEMP 36.6; O2SAT 97
--- NOTE | 2022-03-04 17:38 | W.ED.SKABFB ---
HPI - Skin/Abscess/Foreign Bdy General: Chief complaint: Skin/Abscess/Foreign Body Stated complaint: Abcess Time Seen by Provider: 03/04/22 17:20 Source: patient Mode of arrival: ambulatory Limitations: no limitations History of Present Illness: 36-year-old male states that he has had an abscess to his back. I saw him 2 days ago and incised 2 large abscesses to his back he has been having continuous drainage he is here for his packing removal. Denies any fever he states his pain has improved he does have another abscess he states he has noticed to the middle of his back. Denies any fever or vomiting. Associated symptoms: Deny chills, fever(s), nausea or vomiting Review of Systems Const: Denies: fever(s), chills, body aches or change in appetite Eyes: Denies: blurry vision or eye discomfort ENMT: Denies: throat pain or dental pain Card: Denies: chest pain Resp: Denies: dyspnea GI: Denies: abdominal pain, nausea, vomiting or diarrhea : Denies: dysuria Musc: Denies: neck pain or back pain Skin/Breast: Denies: rash Neuro: Denies: headache(s) Psych: Denies: depression Sabas/Lymph: Denies: easy bruising All/Imm: Denies: urticaria PFSH ED PFSH: Medical History (Updated 03/04/22 @ 17:47 by Nicole Melissa MD) No pertinent past medical history Family History Mother Diabetes Social History Smoking and tobacco status: unknown if ever smoked Alcohol intake: current Procedures Abscess I/D Site: back Local Anesthetic: lidocaine 1% Amount of anesthesia used (mL): 6 Technique: incised with #11 blade Course Vital Signs: Vital signs: Vital Signs Temperature 97.9 F 03/04/22 17:29 Pulse Rate 103 H 03/04/22 17:29 Respiratory Rate 16 03/04/22 17:29 Blood Pressure 132/82 03/04/22 17:29 Pulse Oximetry 97 03/04/22 17:29 MDM - Skin/Abscess/Foreign Bdy Medicial Decision Making Patient presents here for packing removal. I incised to abscesses 2 days ago they are improving still has some drainage I did repack both of them. He has another abscess in the middle of his back that I incised and drained he has not been taking his antibiotics I informed him it is very important that he feels those and take some we will give him 1 dose here. He is return if worsening. He is return in 2 to 3 days for another packing removal Discharge Plan Discharge Patient Disposition: Home Clinical Impression: Abscess of skin or subcutaneous tissue Condition: Stable Prescriptions: No Action hydrocodone-acetaminophen 5-325 mg tablet 1 tab PO Q6H PRN (Reason: pain) Qty: 14 0RF Bactrim DS 800-160 mg tablet 1 tab PO BID 10 Days Qty: 20 0RF Discharge Orders: Discharge ED (Routine); Ordered 03/04/22 Ordered By: Nicole Melissa Discharge Diet: Advance as tolerated Discharge Activity: Resume usual activity Patient Instructions: Abscess (ED) Coding Level of Care Code ED Tube Station Attendant for Josh Naranjo
[2022-03-04] MEDS: HYDROcodone-acetaminophen 5-325 mg Tablet 1 TAB PO (17:51)
[2022-03-04] MEDS: sulfamethoxazole-trimeth DS 160-800 mg Tablet 1 TAB PO (17:51)
[2022-03-04 18:16] VITALS: BP 157/98
== END 2022-03-04 18:15 | disposition home or self-care (01) ==
PROVIDERS: Emergency Provider Emergency Medicine
DX: L02.212 Cutaneous abscess of back [any part, except buttock and flank] (principal)
CPT/HCPCS: 10060; 99283

== ENCOUNTER 2022-03-08 23:11 | Emergency (ER) | payer SELFPAY ==
[2022-03-08 23:12] VITALS: BP 138/88; PULSE 105; RESP 18; TEMP 36.4; O2SAT 98; BMI 44.6
[2022-03-09 01:46] VITALS: RESP 16; O2SAT 96
[2022-03-09] MEDS: sulfamethoxazole-trimeth DS 160-800 mg Tablet 2 TAB PO (01:57)
--- NOTE | 2022-03-09 01:57 | PC.NURSE ---
open chronic wound to right posterior shoulder/back related to nonhealing abscess noted to have 3 openings to air, with tunneling connections in wound beds. site cleansed of purulent drainage, packed with 1/4 inch iodoform ribbon, covered with nonadherent pad and clear adherent dressing. education given on maintenance of the dressing, how to perform care, what indicates complications, when to returned to pcp and when to return to ed. patient states that he does not have a pcp or insurance and can only come to ed for care. notified of all reasons to return to emergency room for care of site, and what to observe for as complications. educated on importance of adhering to antibiotic regimen and purpose of medications, as well as possible outcomes if medication is not taken or site is further neglected. patient verbalizes thanks and understanding. tolerated packing of wound with dressing well. given needed supplied to perform at home when necessary.
[2022-03-09 02:06] VITALS: O2SAT 97
--- NOTE | 2022-03-09 02:09 | PC.NURSE ---
unable to locate the following charges for patient chart: 1/4 inch iodoform packing gauze x 10 inches, sterile scissors x 1, cotton tipped swabs x 1, 3X4 clear adherent dressing x 2
--- NOTE | 2022-03-09 17:10 | ED_ITS ---
HPI - Wound/Laceration General: Chief Complaint: Wound/Laceration Stated Complaint: Skin Absess Time Seen by Provider: 03/09/22 01:29 Source: patient History of Present Illness: 36 year old male gentleman here for the third time this week. He has had as many as three salitic abscesses on his back. These were incised and drained initially, impact. He returned for repacking a couple of days ago, not having filled his antibiotic prescription. He returns for the second time tonight, still not on antibiotics. The packing has fallen out. He denies fever. No vomiting. Onset (ago): day(s) Location: back Context: other Associated symptoms: Reports pain; Denies chills, fever(s), foreign body sensation, inability to move, nausea, numbness or vomiting Treatments prior to arrival: other Review of Systems Const: Denies: fever(s) or chills Resp: Denies: dyspnea GI: Denies: nausea or vomiting Skin/Breast: Reports: rash and erythema [facility] ED PFSH: Medical History No pertinent past medical history Family History Mother Diabetes Social History Smoking and tobacco status: unknown if ever smoked Alcohol intake: current Physical Exam Const: COMMON NORMALS: no acute distress and alert GENERAL APPEARANCE: cooperative HENMT: COMMON NORMALS: normocephalic and atraumatic HEAD & SCALP: normocephalic and atraumatic Eye: COMMON NORMALS: Equal, round and reactive pupils present and EOMs intact bilaterally PUPIL: Yes Equal, round and reactive pupils present Neck/C-Spine: GENERAL: Yes trachea midline Chest: CHEST: Yes Symmetrical chest wall rise Resp: COMMON NORMALS: normal respiratory effort and No retractions Cardio: COMMON NORMALS: regular rate and regular rhythm RATE: regular rate RHYTHM: regular rhythm Neuro: [place] COMA SCALE: document GCS findings [place] coma scale eye opening: Spontaneous [place] coma scale verbal response: Orientated [place] coma scale motor response: Obey commands [place] coma scale total score: 15 SENSORIUM/ORIENTATION: Yes alert Psych: COMMON NORMALS: mental status grossly normal Skin: NARRATIVE SKIN EXAM: open abscess right upper back. some purulent drainage. minimal cellulitis. other abscess closed. no packing present. no sig drainage. Course Vital Signs: Vital signs: Vital Signs Temperature 97.5 F L 03/08/22 23:12 Pulse Rate 105 H 03/08/22 23:12 Respiratory Rate 16 03/09/22 01:46 Blood Pressure 138/88 03/08/22 23:12 Pulse Oximetry 97 03/09/22 02:06 Oxygen Delivery Me thod 03/08/22 23:12 MDM - Wound/Laceration Medical Decision Making Mr Miles has obviously been non compliant. The larger Abscess on the back is repacked. He will be written another prescription for antibiotics, and it was stressed that he should fill and take them. He should return to urgent care in 48 to 72 hours for a wound check. Discharge Plan Discharge Patient Disposition: Home Clinical Impression: Abscess of skin or subcutaneous tissue Condition: Stable Prescriptions: Continued Bactrim DS 800-160 mg tablet 1 tab PO BID 10 Days Qty: 20 0RF No Action hydrocodone-acetaminophen 5-325 mg tablet 1 tab PO Q6H PRN (Reason: pain) Qty: 14 0RF Discharge Orders: Discharge ED (Routine); Ordered 03/09/22 Ordered By: Shashi Messina Patient Instructions: Abscess Follow-up (ED), Opioid Safety, Pain Management Activity Restrictions/Additional Instructions: Go to urgent care thursday for follow up and to check packing in abscess. Please fill and take your antibiotics as prescribed. Return for fever despite 2-3 more doses of antibiotics, vomiting liquids or medications, spreading infection, other concerning symptoms. Coding Level of Care Code ED Supervisor Mail Carriers for Josh Naranjo
== END 2022-03-09 02:09 | disposition home or self-care (01) ==
PROVIDERS: Emergency Provider Emergency Medicine
DX: L02.212 Cutaneous abscess of back [any part, except buttock and flank] (principal)
CPT/HCPCS: 99283

== ENCOUNTER 2022-07-22 19:59 | Emergency (ER) | payer SELFPAY ==
[2022-07-22 20:14] VITALS: BP 143/78; PULSE 125; RESP 24; TEMP 37.8; O2SAT 93; BMI 41.0
[2022-07-22 20:53] LABS: Basophils # 0.1 10^3/uL (0.0-0.1); Basophils % 0.3 %; Eosinophils # 0.3 10^3/uL (0.0-0.8); Eosinophils % 1.7 %; Hematocrit 52.1 % (42.0-52.0); Hemoglobin 17.3 g/dL (11.7-16.6); Lymphocytes # 1.7 10^3/uL (0.8-4.8); Lymphocytes % 8.6 %; Mean Corpuscular HGB Conc 33.2 g/dL (30.0-36.0); Mean Corpuscular Volume 90.3 fl (80-94); Mean Platelet Volume 11.2 fL (7.4-10.4); Monocytes # 1.9 10^3/uL (0.2-0.9); Monocytes % 9.8 %; Neutrophils # 15.68 10^3/uL (1.8-7.7); Neutrophils % 78.9 %; Nucleated Red Blood Cells % 0 %; Platelet Count 330 10^3/cmm (130-400); Red Blood Count 5.77 10^6/uL (4.1-5.3); Red Cell Distribution Width 12.7 % (12.1-15.1); White Blood Count 19.9 10^3/uL (4.0-10.0)
[2022-07-22 21:10] LABS: Anion Gap 17.3 (5-19); Blood Urea Nitrogen 6 mg/dL (6-20); Calcium 9.5 mg/dL (8.5-10.5); Carbon Dioxide 25 mmol/L (22-29); Chloride 96 mmol/L (98-107); Glomerular Filtration Rate 108.8 mL/min (90-130); Glucose 129 mg/dL (65-115); Osmolality Calculated 277 mOsm/kg (285-295); Potassium 4.3 mmol/L (3.5-5.1); Sodium 134 mmol/L (136-145)
--- NOTE | 2022-07-22 23:58 | W.ED.SKABFB ---
HPI - Skin/Abscess/Foreign Bdy General: Chief complaint: Skin/Abscess/Foreign Body Stated complaint: abcess in mouth, fever Time Seen by Provider: 07/22/22 23:39 History of Present Illness: Patient is a 36-year-old male who comes to the ED with abscess on left corner of mouth. Approximately 2 days ago patient first developed a small pimple on left corner of mouth. He was squeezing it the first day. Over the past 24 hours it has gotten more swollen and painful. He rates the pain currently a 5 out of 10. He has a history of MRSA and abscesses. Associated symptoms: Deny chills, fever(s), nausea or vomiting Review of Systems Const: Denies: fever(s), chills or fatigue Eyes: Denies: change in vision or eye discomfort ENMT: Denies: throat pain, odynophagia, nasal discharge or nasal congestion Card: Denies: chest pain, palpitations, edema, swelling of feet/ankles, dyspnea on exertion or orthopnea Resp: Denies: dyspnea, productive cough or non-productive cough GI: Denies: abdominal pain, nausea, vomiting, diarrhea, constipation or hematochezia : Denies: flank pain, difficulty urinating, dysuria or hematuria Musc: Denies: neck pain, back pain or extremity swelling Skin/Breast: Reports: new lesions (Abscess on left corner of mouth); Denies: rash Neuro: Denies: headache(s), numbness in extremities or weakness in extremities PFS ED PFSH: Medical History No pertinent family history No pertinent past medical history Family History Mother Diabetes Social History Smoking and tobacco status: unknown if ever smoked Alcohol intake: current Physical Exam Const: COMMON NORMALS: patient oriented x3 and alert GENERAL APPEARANCE: cooperative HENMT: COMMON NORMALS: normocephalic HEAD & SCALP: normocephalic MOUTH: Normal oral and palatal mucosa present THROAT: posterior oropharynx normal and uvula midline OTHER: Left commissure-tenderness, erythema, warmth and swelling noted. Not fluctuant and indurated. Some swelling extends to the left side of the upper and lower lip. No active bleeding or purulent drainage noted. Neck/C-Spine: COMMON NORMALS: supple GENERAL: Yes normal visual inspection Resp: COMMON NORMALS: normal respiratory effort, No retractions, No use of accessory muscles and clear to auscultation bilaterally AUSCULTATION: clear to auscultation bilaterally Cardio: COMMON NORMALS: regular rate, regular rhythm, S1 normal heart sound present, S2 normal heart sound present, No gallops present (Cardio), No clicks present (Cardio), No murmurs present (Cardio) and Peripheral pulses 2+ throughout RATE: regular rate RHYTHM: regular rhythm HEART SOUNDS: S1 normal heart sound present and S2 normal heart sound present PERIPHERAL PULSES: Peripheral pulses 2+ throughout GI: COMMON NORMALS: Normal to inspection, nondistended, normoactive bowel sounds present, Soft to palpation, non-tender and no masses PALPATION: Yes Soft to palpation : COMMON NORMALS: Yes no CVA tenderness BLADDER/KIDNEY EXAM: Yes no CVA tenderness Back/Pelvis: COMMON NORMALS: no CVA tenderness Extremity: COMMON NORMALS: normal to inspection Neuro: COMMON NORMALS: patient oriented x3 SENSORIUM/ORIENTATION: Yes alert GAIT: Yes Normal gait present Skin: GENERAL SKIN EXAM: dry skin Procedures Abscess I/D Site: face (Left Commissure) Sedation/analgesia: none Local Anesthetic: lidocaine 1% and with epi Amount of anesthesia used (mL): 2 Technique: incised with #11 blade Amount of fluid expressed (mL): 1 (blood and thick purulent drainage) Irrigation: Yes Packing used?: none Course Vital Signs: Vital signs: Vital Signs Temperature 100.1 F H 07/22/22 20:14 Pulse Rate 118 H 07/23/22 01:33 Respiratory Rate 24 H 07/22/22 20:14 Blood Pressure 139/88 07/23/22 01:33 Pulse Oximetry 97 07/23/22 01:33 Oxygen Delivery Me thod 07/22/22 20:14 MDM - Skin/Abscess/Foreign Bdy Medicial Decision Making Patient is a 36-year-old male who comes to the ED with abscess on left corner of mouth. Approximately 2 days ago patient first developed a small pimple on left corner of mouth. He was squeezing it the first day. Over the past 24 hours it has gotten more swollen and painful. He rates the pain currently a 5 out of 10. He has a history of MRSA and abscesses. Temp 100.1 and an pulse of 118. The rest of his vitals are stable. Patient appears in some pain and discomfort due to abscess on left side of mouth. Exam findings?left commissure-tenderness, erythema, warmth and swelling noted. Not fluctuant and indurated. Some swelling extends to the left side of the upper and lower lip. No active bleeding or purulent drainage noted. Findings suggestive of a developing abscess with cellulitis as well. White blood cell count of 19.9 and the rest of CBC and BMP are unremarkable. Abscess culture pending. Abscess I&D was performed using lidocaine 1% with epi as local. Small incision was made with 11 blade and with small amount of thick purulent and bloody discharge. Abscess area was irrigated extensor with normal saline. Patient was given p.o. ibuprofen and IV clindamycin and Decadron here in the ED. He was stable for discharge home and told to follow-up with provider in the next 2 to 3 days for reevaluation of abscess. He was discharged home with a prescription for clindamycin. Return ED precautions given. Patient understood and agreed with plan. Lab Data I reviewed the patient's lab results. 07/22/22 20:43 07/22/22 20:43 Laboratory Results WBC 19.9 10^3/uL (4.0-10.0) H 07/22/22 20:43 RBC 5.77 10^6/uL (4.1-5.3) H 07/22/22 20:43 Hgb 17.3 g/dL (11.7-16.6) H 07/22/22 20:43 Hct 52.1 % (42.0-52.0) H 07/22/22 20:43 MCV 90.3 fl (80-94) 07/22/22 20:43 MCH 30.0 pg (28.0-34.0) 07/22/22 20:43 MCHC 33.2 g/dL (30.0-36.0) 07/22/22 20:43 RDW 12.7 % (12.1-15.1) 07/22/22 20:43 Plt Count 330 10^3/cmm (130-400) 07/22/22 20:43 MPV 11.2 fL (7.4-10.4) H 07/22/22 20:43 Neut % (Auto) 78.9 % 07/22/22 20:43 Lymph % (Auto) 8.6 % 07/22/22 20:43 [place] % (Auto) 9.8 % 07/22/22 20:43 Eos % (Auto) 1.7 % 07/22/22 20:43 Baso % (Auto) 0.3 % 07/22/22 20:43 Neut # (Auto) 15.68 10^3/uL (1.8-7.7) H 07/22/22 20:43 Lymph # (Auto) 1.7 10^3/uL (0.8-4.8) 07/22/22 20:43 [place] # (Auto) 1.9 10^3/uL (0.2-0.9) H 07/22/22 20:43 Eos # (Auto) 0.3 10^3/uL (0.0-0.8) 07/22/22 20:43 Baso # (Auto) 0.1 10^3/uL (0.0-0.1) 07/22/22 20:43 Nucleated RBC % (auto) 0 % 07/22/22 20:43 Nucleated RBCs # 0.0 /100WBC 07/22/22 20:43 Sodium 134 mmol/L (136-145) L 07/22/22 20:43 Potassium 4.3 mmol/L (3.5-5.1) 07/22/22 20:43 Chloride 96 mmol/L (98-107) L 07/22/22 20:43 Carbon Dioxide 25 mmol/L (22-29) 07/22/22 20:43 Anion Gap 17.3 (5-19) 07/22/22 20:43 BUN 6 mg/dL (6-20) 07/22/22 20:43 Creatinine 0.8 mg/dL (0.7-1.2) 07/22/22 20:43 GFR Calculation 108.8 mL/min (90-130) 07/22/22 20:43 Glucose 129 mg/dL (65-115) H 07/22/22 20:43 Calculated Osmolality 277 mOsm/kg (285-295) L 07/22/22 20:43 Calcium 9.5 mg/dL (8.5-10.5) 07/22/22 20:43 Discharge Plan Discharge Patient Disposition: Home Clinical Impression: Cellulitis and abscess of face Condition: Stable Prescriptions: New clindamycin HCl 150 mg capsule 300 mg PO QID 10 Days Qty: 80 0RF No Action hydrocodone-acetaminophen 5-325 mg tablet 1 tab PO Q6H PRN (Reason: pain) Qty: 14 0RF Discharge Orders: Discharge ED (Routine); Ordered 07/23/22 Ordered By: James Denson Discharge Diet: Regular Discharge Activity: Resume usual activity Patient Instructions: Cellulitis (ED), Abscess (ED) Activity Restrictions/Additional Instructions: Follow-up with medical provider as directed to have labs is reevaluated in the next 2 to 3 days. Take medications as prescribed. Return to the ER or your medical provider if condition worsens. Continue taking [id number] Tylenol or ibuprofen to help with pain. Please read and understand discharge instructions. Thank you for choosing [facility] for your healthcare needs today. Please realize this is an emergency room and that we are providing you with a medical screening exam and this may not be complete and all inclusive of all the testing and or work up that you may need to determine your ailment or severity of your illness. It is very important that you follow up as instructed or that you return to the Emergency Department should you have concerns or if your condition changes or worsens in any way. 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
[2022-07-23] MEDS: dexamethasone 10 mg/mL INJ IVP (01:04)
[2022-07-23] MEDS: clindamycin 900 MG/50 ML PREMIX 100 MG IV (01:05)
[2022-07-23] MEDS: ibuprofen 800 mg tablet PO (01:05)
[2022-07-23 01:33] VITALS: BP 139/88; PULSE 118; O2SAT 97
== END 2022-07-23 01:34 | disposition home or self-care (01) ==
PROVIDERS: Emergency Provider Physician Assistant
DX: L03.211 Cellulitis of face (principal); L02.01 Cutaneous abscess of face
CPT/HCPCS: 10060; 80048; 85025; 87070; 87075; 87077; 87186; 87205; 96365; 96375; 99284; J1100; J3490

== ENCOUNTER 2023-12-22 17:29 | Emergency (ER) | payer SELFPAY ==
[2023-12-22 17:53] VITALS: BP 162/96; PULSE 109; RESP 18; TEMP 36.8; O2SAT 97
[2023-12-22 17:59] LABS: Basophils # 0.1 10^3/uL (0.0-0.1); Basophils % 0.5 %; Eosinophils # 0.3 10^3/uL (0.0-0.8); Hematocrit 48.6 % (37-53); Lymphocytes # 3.9 10^3/uL (0.8-4.8); Lymphocytes % 29.3 %; Mean Corpuscular HGB Conc 34.2 g/dL (30-55); Mean Corpuscular Hemoglobin 31.2 pg (27-33); Mean Corpuscular Volume 91.4 fl (82-101); Mean Platelet Volume 10.9 fL (7.4-10.4); Monocytes # 0.7 10^3/uL (0.2-0.9); Monocytes % 5.3 %; Neutrophils # 8.24 10^3/uL (1.8-7.7); Neutrophils % 62.4 %; Nucleated Red Blood Cells % 0 %; Platelet Count 314 10^3/cmm (157-399); Red Blood Count 5.32 10^6/uL (3.85-5.65); Red Cell Distribution Width 12.6 % (12.1-15.1); White Blood Count 13.19 10^3/uL (3.29-11.43)
[2023-12-22 18:27] LABS: Alanine Aminotransferase 20 U/L (0-41); Albumin Level 4.3 g/dL (3.5-5.2); Alkaline Phosphatase 93 U/L (40-130); Anion Gap 17.2 (5-19); Aspartate Amino Transferase 17 U/L (0-40); Blood Urea Nitrogen 12 mg/dL (6-20); Calcium 9.8 mg/dL (8.5-10.5); Carbon Dioxide 27 mmol/L (22-29); Chloride 101 mmol/L (98-107); Creatinine Clr Calc Pharmacy 158.6517; Globulin 3.3 g/dL (1.3-4.6); Glomerular Filtration Rate 93.9 mL/min (90-130); Glucose 125 mg/dL (65-115); Lipase 25 U/L (13-60); Osmolality Calculated 293 mOsm/kg (285-295); Potassium 4.2 mmol/L (3.5-5.1); Sodium 141 mmol/L (136-145); Total Protein 7.6 g/dL (6.6-8.7)
[2023-12-22 19:03] VITALS: BP 142/85; PULSE 98; RESP 18; O2SAT 96
[2023-12-22 19:29] LABS: Add Urine Microscopic? NO; Charge for UA Resulting for Rev
[2023-12-22 19:34] LABS: Bilirubin Urine Neg (Negative); Blood Urine Neg (Negative); Glucose Urine UA Norm (Normal); Ketones Urine Negative (Negative); Leukocyte Esterase Urine Negative (Negative); Nitrate Urine Negative (Negative); Protein Urine Neg (Negative); Urine Appearance Clear (CLEAR); Urine Color Yellow (Yellow); Urobilinogen Urine Norm (Negative); pH Urine 6 (5-7)
--- NOTE | 2023-12-22 19:41 | CTR_ITS ---
PROCEDURE INFORMATION: Exam: CT Abdomen And Pelvis With Contrast Exam date and time: 12/22/2023 9:03 PM Age: 38 years old Clinical indication: Abdominal pain; Localized; Upper; Additional info: Ruq luq L flank pain TECHNIQUE: Imaging protocol: Computed tomography of the abdomen and pelvis with contrast. Radiation optimization: All CT scans at this facility use at least one of these dose optimization techniques: automated exposure control; mA and/or kV adjustment per patient size (includes targeted exams where dose is matched to clinical indication); or iterative reconstruction. Contrast material: OMNI 350; Contrast volume: 100 ml; Contrast route: INTRAVENOUS (IV); COMPARISON: No relevant prior studies available. RADIATION DOSE METRICS: Total DLP (mGy-cm): 1401 FINDINGS: Liver: Hypoattenuating hepatic parenchyma likely representing steatosis. Gallbladder and biliary ducts: Normal. No calcified stones. No ductal dilation. Pancreas: Normal. No ductal dilation. Spleen: Normal. No splenomegaly. Adrenal glands: Normal. No mass. Kidneys and ureters: Contrast is visualized within the bilateral urinary collecting systems, limiting evaluation for stones. No hydronephrosis. Stomach and bowel: Mild diverticulosis without evidence of diverticulitis. Small duodenal diverticulum. Appendix: No evidence of appendicitis. Intraperitoneal space: Unremarkable. No free air. No significant fluid collection. Vasculature: Unremarkable. No abdominal aortic aneurysm. Lymph nodes: Unremarkable. No enlarged lymph nodes. Urinary bladder: Unremarkable as visualized. Reproductive: Unremarkable as visualized. Bones/joints: Moderate to severe spondylosis . 2 mm anterolisthesis of L5 on S1 with bilateral pars defect and severe intervertebral disc space narrowing. Soft tissues: Unremarkable. CT/CT abdomen pelvis w con* [id number] IMPRESSION: 1. No acute findings within the abdomen or pelvis. 2. Hepatic steatosis.
--- NOTE | 2023-12-22 20:28 | ED_ITS ---
HPI - Abdominal Pain 2 General: Chief Complaint: Abdominal Pain Stated Complaint: abd pain Time Seen by Provider: 12/22/23 18:55 History of Present Illness: Patient presents to the ER with right upper quadrant, left upper quadrant and left flank pain. He said the right upper quadrant has been going on for about a week since moving a bunch of boxes while moving he did not realize that he strained it or hurt it at the time. Patient says actually feels worse when he bends over and better when he straightens up. The left side he feels a soft tissue mass In that area it has been there the last couple days and is tender to palpate, he has been having left flank pain for the last 3 to 4 days to no issues with urination such as pain burning frequency urgency. Review of Systems 2 General: Reports: 10 or more systems reviewed and unremarkable except in HPI and below PFSH ED 2 PFSH: Medical History No pertinent family history No pertinent past medical history Family History Mother Diabetes Social History Smoking and tobacco/nicotine status: unknown if used tobacco/nicotine Alcohol intake: current Substance/Drug Use: current Physical Exam 2 Const: COMMON NORMALS: no acute distress, average body habitus, patient oriented x3, no limitations, healthy appearing, alert and well nourished HENMT: COMMON NORMALS: normocephalic, atraumatic, hearing grossly normal bilaterally, external ears normal, Normal external nose present and moist oral mucous membranes HEAD & SCALP: normocephalic and atraumatic NOSE: Normal external nose present EXTERNAL EAR: Yes external ears normal Neck/C-Spine: COMMON NORMALS: full ROM, no lymphadenopathy, supple, no meningeal signs, no JVD and Thyroid normal THYROID: Thyroid normal Chest: COMMONS NORMALS: normal inspection of the chest and normal palpation of entire chest wall Resp: COMMON NORMALS: normal respiratory effort, No retractions, No use of accessory muscles and clear to auscultation bilaterally AUSCULTATION: clear to auscultation bilaterally Cardio: COMMON NORMALS: no JVD, regular rate, regular rhythm, S1 normal heart sound present, S2 normal heart sound present, No gallops present (Cardio), No clicks present (Cardio), No murmurs present (Cardio) and No rub (Cardio) R ATE: regular rate RHYTHM: regular rhythm HEART SOUNDS: S1 normal heart sound present and S2 normal heart sound present GI: COMMON NORMALS: Normal to inspection, nondistended, normoactive bowel sounds present, Soft to palpation, non-tender, No hepatosplenomegaly present and no masses PALPATION: Yes Soft to palpation and Yes No hepatosplenomegaly present Neuro: COMMON NORMALS: patient oriented x3 SENSORIUM/ORIENTATION: Yes alert MENINGEAL SIGNS: Yes no meningeal signs Course 2 Vital Signs: Vital signs: Vital Signs Temperature 98.2 F 12/22/23 17:53 Pulse Rate 98 12/22/23 19:03 Respiratory Rate 18 12/22/23 19:03 Blood Pressure 142/85 12/22/23 19:03 Pulse Oximetry 96 12/22/23 19:03 Oxygen Delivery Me thod Room Air 12/22/23 19:03 MDM - Abdominal Pain Medical Decision Making Patient comes in with abdominal pain and flank pain, patient had CBC CMP lipase urinalysis as well as a contrasted CT scan of the abdomen pelvis all of which essentially benign. I discussed these results with the patient and his and they are comforted that they are all normal. Patient will be discharged home Differential Diagnosis Likely abdominal pain Medical Records I reviewed the patient's medical records. Lab Data I reviewed the patient's lab results. 12/22/23 17:53 12/22/23 17:53 Labs/Radiology: Radiology Impressions Abdomen/Pelvis CT 12/22/23 19:41 IMPRESSION: 1. No acute findings within the abdomen or pelvis. 2. Hepatic steatosis. Laboratory Results WBC 13.19 10^3/uL (3.29-11.43) H 12/22/23 17:53 RBC 5.32 10^6/uL (3.85-5.65) 12/22/23 17:53 Hgb 16.60 g/dL (11.27-16.99) 12/22/23 17:53 Hct 48.6 % (37-53) 12/22/23 17:53 MCV 91.4 fl (82-101) 12/22/23 17:53 MCH 31.2 pg (27-33) 12/22/23 17:53 MCHC 34.2 g/dL (30-55) 12/22/23 17:53 RDW 12.6 % (12.1-15.1) 12/22/23 17:53 Plt Count 314 10^3/cmm (157-399) 12/22/23 17:53 MPV 10.9 fL (7.4-10.4) H 12/22/23 17:53 Neut % (Auto) 62.4 % 12/22/23 17:53 Lymph % (Auto) 29.3 % 12/22/23 17:53 [place] % (Auto) 5.3 % 12/22/23 17:53 Eos % (Auto) 2.0 % 12/22/23 17:53 Baso % (Auto) 0.5 % 12/22/23 17:53 Neut # (Auto) 8.24 10^3/uL (1.8-7.7) H 12/22/23 17:53 Lymph # (Auto) 3.9 10^3/uL (0.8-4.8) 12/22/23 17:53 [place] # (Auto) 0.7 10^3/uL (0.2-0.9) 12/22/23 17:53 Eos # (Auto) 0.3 10^3/uL (0.0-0.8) 12/22/23 17:53 Baso # (Auto) 0.1 10^3/uL (0.0-0.1) 12/22/23 17:53 Nucleated RBC % (auto) 0 % 12/22/23 17:53 Nucleated RBCs # 0.0 /100WBC 12/22/23 17:53 Sodium 141 mmol/L (136-145) 12/22/23 17:53 Potassium 4.2 mmol/L (3.5-5.1) 12/22/23 17:53 Chloride 101 mmol/L (98-107) 12/22/23 17:53 Carbon Dioxide 27 mmol/L (22-29) 12/22/23 17:53 Anion Gap 17.2 (5-19) 12/22/23 17:53 BUN 12 mg/dL (6-20) 12/22/23 17:53 Creatinine 0.9 mg/dL (0.7-1.2) 12/22/23 17:53 GFR Calculation 93.9 mL/min (90-130) 12/22/23 17:53 Glucose 125 mg/dL (65-115) H 12/22/23 17:53 Calculated Osmolality 293 mOsm/kg (285-295) 12/22/23 17:53 Calcium 9.8 mg/dL (8.5-10.5) 12/22/23 17:53 Total Bilirubin 1.0 mg/dL (0.15-1.2) 12/22/23 17:53 AST 17 U/L (0-40) 12/22/23 17:53 ALT 20 U/L (0-41) 12/22/23 17:53 Alkaline Phosphatase 93 U/L (40-130) 12/22/23 17:53 Total Protein 7.6 g/dL (6.6-8.7) 12/22/23 17:53 Albumin 4.3 g/dL (3.5-5.2) 12/22/23 17:53 Globulin 3.3 g/dL (1.3-4.6) 12/22/23 17:53 Lipase 25 U/L (13-60) 12/22/23 17:53 Urine Color Yellow (Yellow) 12/22/23 18:57 Urine Appearance Clear (CLEAR) 12/22/23 18:57 Urine pH 6 (5-7) 12/22/23 18:57 Ur Specific [place] 1.010 (1.005-1.030) 12/22/23 18:57 Urine Protein Neg (Negative) 12/22/23 18:57 Urine Glucose (UA) Norm (Normal) 12/22/23 18:57 Urine Ketones Negative (Negative) 12/22/23 18:57 Urine Blood Neg (Negative) 12/22/23 18:57 Urine Nitrate Negative (Negative) 12/22/23 18:57 Urine Bilirubin Neg (Negative) 12/22/23 18:57 Urine Urobilinogen Norm mg/dL (Negative) 12/22/23 18:57 Ur Leukocyte Esterase Negative (Negative) 12/22/23 18:57 All radiology interpretation(s) finalized by discharge Discharge Plan Discharge Patient Disposition: Home Clinical Impression: Abdominal pain Qualifiers: Abdominal location: generalized Qualified Code(s): R10.84 - Generalized abdominal pain Condition: Stable Prescriptions: No Action hydrocodone-acetaminophen 5-325 mg tablet 1 tab PO Q6H PRN (Reason: pain) Qty: 14 0RF Discharge Orders: Discharge ED (Routine); Ordered 12/22/23 Ordered By: Charli Vigil Patient Instructions: Abdominal Pain (ED) Activity Restrictions/Additional Instructions: Thank you for choosing [facility] for your healthcare needs today. Please realize that you were seen in the emergency department and that we are providing you with an emergency medical screening exam and this may not be a complete and all exclusive of all testing and/or medical workup we may need to determine your element or severity of your illness. It is very important that you follow-up as instructed with your primary care provider or specialist for the additional evaluation and to discuss your medical treatment plan. You may return to the emergency department should you have concerns or if your condition changes or worsens in any way. Coding Level of Care Code ED Fermentologist for Josh Naranjo
[2023-12-22] MEDS: iohexol 350 mg/mL 500 mL Btl (per mL) IV (21:12)
[2023-12-22 22:40] VITALS: BP 158/98; PULSE 88; RESP 18; O2SAT 97
== END 2023-12-22 22:42 | disposition home or self-care (01) ==
PROVIDERS: Emergency Medicine; Emergency Provider Emergency Medicine
DX: R10.84 Generalized abdominal pain (principal)
CPT/HCPCS: 36415; 74177; 80053; 81003; 83690; 85025; 99285; Q9967

== ENCOUNTER 2024-06-09 18:00 | Emergency (ER) | payer SELFPAY ==
[2024-06-09 18:13] VITALS: BP 127/85; PULSE 128; RESP 17; TEMP 38.1; O2SAT 99; BMI 45.8
--- NOTE | 2024-06-09 18:20 | W.ED.EXTPRO ---
HPI - Extremity Problem General: Chief complaint: Extremity Problem,Nontraumatic Stated complaint: ankle/knee pain Time Seen by Provider: 06/09/24 18:02 Source: patient Mode of arrival: wheelchair Limitations: no limitations History of Present Illness: Patient is a 38-year-old male who presents to the ED today with complaint of bilateral knee, ankle, and foot pain. He feels symptoms are related to gout. He does have a longstanding history of gout. States symptoms have seemed to wax and wane over the past two weeks or so. States he normally takes allopurinol but has not had this medication in quite some time. Patient states his right knee is hurting more than his left. His left was hurting more several days ago however it is now resolved. He has noted bilateral ankle swelling, left greater than right. He is having trouble walking due to the pain in his feet and ankles. He has not noticed any redness, streaking, skin sores/ulcers. He does arrive to the emergency department tachycardic at 128 with a fever of 100.6. He does report some chills and body aches. States his pain today is identical to previous gout flares. States he has often had flares in multiple joints. MD Complaint: extremity pain, extremity swelling, joint swelling and joint pain Onset (ago): day(s) Pain Consistency: constant Location: left, right and lower extremity Radiation: none Relieving factors: nothing Exacerbating factors: weight bearing Associated symptoms: Reports no associated symptoms Related Data Previous Rx's Medication Instructions Recorded hydrocodone 5 mg-acetaminophen 325 1 tab PO Q6H PRN pain #14 tabs 03/02/22 mg tablet indomethacin 50 mg capsule 50 mg PO TID #14 caps 06/09/24 prednisone 10 mg tablet 10 mg PO DAILY 10 days #41 tabs 06/09/24 Allergies Allergy/AdvReac Type Severity Reaction Status Date / Time No Known Allergies Allergy Verified 12/22/23 17:58 [facility] ED PFSH: Medical History No pertinent family history No pertinent past medical history Family History Mother Diabetes Social History Smoking and tobacco/nicotine status: unknown if used tobacco/nicotine Alcohol intake: current Substance/Drug Use: current Physical Exam Const: COMMON NORMALS: no acute distress, patient oriented x3, no limitations and alert GENERAL APPEARANCE: cooperative NUTRITIONAL APPEARANCE: obese morbidly obese (BMI 45.8) ORIENTATION/CONSCIOUSNESS: Yes awake, Yes oriented to person, Yes oriented to place and Yes oriented to time HENMT: COMMON NORMALS: normocephalic and atraumatic HEAD & SCALP: normocephalic and atraumatic Eye: COMMON NORMALS: no scleral icterus Neck/C-Spine: COMMON NORMALS: full ROM, no lymphadenopathy, supple and no meningeal signs Chest: COMMONS NORMALS: normal inspection of the chest Resp: COMMON NORMALS: normal respiratory effort and clear to auscultation bilaterally AUSCULTATION: clear to auscultation bilaterally Cardio: COMMON NORMALS: regular rate and regular rhythm RATE: regular rate RHYTHM: regular rhythm GI: COMMON NORMALS: Normal to inspection, nondistended, normoactive bowel sounds present, Soft to palpation, non-tender, No hepatosplenomegaly present and no masses PALPATION: Yes Soft to palpation and Yes No hepatosplenomegaly present : COMMON NORMALS: Yes no CVA tenderness BLADDER/KIDNEY EXAM: Yes no CVA tenderness Back/Pelvis: COMMON NORMALS: no CVA tenderness and thoracic and lumbar spine normal to inspection Extremity: COMMON NORMALS: capillary refill normal and no calf tenderness GENERAL: Yes normal exam except as noted RIGHT LOWER EXTREMITY: Yes knee joint and Yes foot & digits LEFT LOWER EXTREMITY: Yes ankle joint OTHER: patient has pain/swelling to R knee; no erythema; he does have pain with passive ROM but pain does not seem to be out of proportion to exam L knee (that was swollen and painful a few days ago) is now normal and pain reports no pain and full ROM bilateral ankles (L>R) are swollen and warm; again does have painful passive ROM but no pain thought to be out of proportion Neuro: COMMON NORMALS: patient oriented x3, moves all extremities, no focal motor deficits and no sensory deficits noted SENSORIUM/ORIENTATION: Yes alert, Yes oriented to person, Yes oriented to place and Yes oriented to time MENINGEAL SIGNS: Yes no meningeal signs Skin: COMMON NORMALS: no rashes or lesions noted GENERAL SKIN EXAM: no rashes or lesions noted Course Vital Signs: Vital signs: Vital Signs Temperature 100.6 F H 06/09/24 18:13 Pulse Rate 120 H 06/09/24 18:49 Respiratory Rate 18 06/09/24 18:49 Blood Pressure 121/94 06/09/24 18:49 Pulse Oximetry 98 06/09/24 18:49 Oxygen Delivery Me thod Room Air 06/09/24 18:13 MDM - Extremity (Nontraumatic) Medical Decision Making Patient is a 38-year-old male here for polyarticular pain and swelling. Has been having waxing and waning symptoms since [place]. Several days ago his left knee seemed to be mainly affected however this is completely resolved. On arrival to the emergency department it is his right knee and bilateral ankles. Patient states he has a longstanding history of gout and states his symptoms today are identical to previous gout flares. He does arrive tachycardic and mildly febrile. Blood work showing a white count of 15.5. Chemistry does show an elevated uric acid at 8.3. He has a normal lactate. CRP is significantly elevated at 125. Flu and COVID obtained due to fevers and these were unremarkable. It is common to see neutrophilic leukocytosis with polyarticular gout flares and even fevers. Other DDx includes infectious/septic arthritis. History seems less suspicious for this. Clinically pain to joints does not seem out of proportion. Polyarticular septic arthritis is rare and (according to [employer]) would be more likely to occur in septic patients along with underlying rheumatoid arthritis or systemic connective tissue diseases. Case discussed with Dr. Melissa who recommends treating for gout flare. He is out of the window for Colchicine. He was given IV Toradol/Solu-Medrol he will be placed on a long Prednisone taper and indomethacin at home. Strict return to ED precautions discussed to which she verbalized understanding. Otherwise I would like him to follow-up with his primary care provider soon as possible. Following flare, I would recommend patient get put back on his Allopurinol. Differential Diagnosis Likely gout Medical Records I reviewed the patient's medical records. Lab Data I reviewed the patient's lab results. 06/09/24 18:44 06/09/24 18:44 Laboratory Results WBC 15.51 10^3/uL (3.29-11.43) H 06/09/24 18:44 RBC 5.48 10^6/uL (3.85-5.65) 06/09/24 18:44 Hgb 16.20 g/dL (11.27-16.99) 06/09/24 18:44 Hct 49.3 % (37-53) 06/09/24 18:44 MCV 90.0 fl (82-101) 06/09/24 18:44 MCH 29.6 pg (27-33) 06/09/24 18:44 MCHC 32.9 g/dL (30-55) 06/09/24 18:44 RDW 12.4 % (12.1-15.1) 06/09/24 18:44 Plt Count 330 10^3/cmm (157-399) 06/09/24 18:44 MPV 11.6 fL (7.4-10.4) H 06/09/24 18:44 Neut % (Auto) 70.9 % 06/09/24 18:44 Lymph % (Auto) 16.5 % 06/09/24 18:44 [place] % (Auto) 10.4 % 06/09/24 18:44 Eos % (Auto) 1.2 % 06/09/24 18:44 Baso % (Auto) 0.4 % 06/09/24 18:44 Neut # (Auto) 11.00 10^3/uL (1.8-7.7) H 06/09/24 18:44 Lymph # (Auto) 2.6 10^3/uL (0.8-4.8) 06/09/24 18:44 [place] # (Auto) 1.6 10^3/uL (0.2-0.9) H 06/09/24 18:44 Eos # (Auto) 0.2 10^3/uL (0.0-0.8) 06/09/24 18:44 Baso # (Auto) 0.1 10^3/uL (0.0-0.1) 06/09/24 18:44 Nucleated RBC % (auto) 0 % 06/09/24 18:44 Nucleated RBCs # 0.0 /100WBC 06/09/24 18:44 Sodium 135 mmol/L (136-145) L 06/09/24 18:44 Potassium 4.0 mmol/L (3.5-5.1) 06/09/24 18:44 Chloride 98 mmol/L (98-107) 06/09/24 18:44 Carbon Dioxide 25 mmol/L (22-29) 06/09/24 18:44 Anion Gap 16.0 (5-19) 06/09/24 18:44 BUN 8 mg/dL (6-20) 06/09/24 18:44 Creatinine 0.8 mg/dL (0.7-1.2) 06/09/24 18:44 GFR Calculation 107.6 mL/min (90-130) 06/09/24 18:44 Glucose 112 mg/dL (65-115) 06/09/24 18:44 Calculated Osmolality 279 mOsm/kg (285-295) L 06/09/24 18:44 Lactic Acid 2.2 mmol/L (0.5-2.2) 06/09/24 18:44 Uric Acid 8.3 mg/dL (3.4-7.0) H 06/09/24 18:44 Calcium 9.2 mg/dL (8.5-10.5) 06/09/24 18:44 Total Bilirubin 1.1 mg/dL (0.15-1.2) 06/09/24 18:44 AST 50 U/L (0-40) H 06/09/24 18:44 ALT 86 U/L (0-41) H 06/09/24 18:44 Alkaline Phosphatase 123 U/L (40-130) 06/09/24 18:44 C-Reactive Protein 125.8 mg/L (0.0-4.9) H 06/09/24 18:44 Total Protein 7.4 g/dL (6.6-8.7) 06/09/24 18:44 Albumin 3.9 g/dL (3.5-5.2) 06/09/24 18:44 Globulin 3.5 g/dL (1.3-4.6) 06/09/24 18:44 Influenza Type A Ag Negative (Negative) 06/09/24 18:30 Influenza Type B Ag Negative (Negative) 06/09/24 18:30 SARS-CoV-2 Ag (Rapid) negative (Negative) 06/09/24 18:30 No radiology studies performed this visit Discharge Plan Discharge Patient Disposition: Home Clinical Impression: Gout flare Qualifiers: Gout site: multiple sites Gout etiology: unspecified cause Qualified Code(s): M10.9 - Gout, unspecified Condition: Stable Prescriptions: New indomethacin 50 mg capsule 50 mg PO TID Qty: 14 0RF Rx Instructions: administer with food or milk prednisone 10 mg tablet 10 mg PO DAILY 10 Days Qty: 41 0RF Rx Instructions: 6 tab on day 1-2, 5 tab on day 3-4, 4 tab on day 5-6, 3 tabs on day 7-8, 2 tab on day 9-10, 1 tab on day 11 No Action hydrocodone-acetaminophen 5-325 mg tablet 1 tab PO Q6H PRN (Reason: pain) Qty: 14 0RF Discharge Orders: Discharge ED (Routine); Ordered 06/09/24 Ordered By: Melinda Suárez Patient Instructions: Gout, Gout (ED) Activity Restrictions/Additional Instructions: As we discussed, I would like you to follow-up with your primary care provider next week for re-evaluation. They can work on restarting you on your allopurinol following this current flare. You need to return to the emergency department at anytime for worsening joint pain, worsening fevers, body aches, generally feeling worse or unwell, significant redness/warmth/severe pain to any of your joints, or any other concerns you may have. Coding Level of Care Code ED Systems Test Engineer for Josh Naranjo
[2024-06-09 18:21] VITALS: BP 132/113; PULSE 123; RESP 16; O2SAT 99
[2024-06-09] MEDS: acetaminophen 500 mg Tablet 1000 MG PO (18:35)
[2024-06-09 18:49] VITALS: BP 121/94; PULSE 120; RESP 18; O2SAT 98
[2024-06-09 18:56] LABS: Basophils # 0.1 10^3/uL (0.0-0.1); Basophils % 0.4 %; Eosinophils # 0.2 10^3/uL (0.0-0.8); Eosinophils % 1.2 %; Hematocrit 49.3 % (37-53); Lymphocytes # 2.6 10^3/uL (0.8-4.8); Lymphocytes % 16.5 %; Mean Corpuscular HGB Conc 32.9 g/dL (30-55); Mean Corpuscular Hemoglobin 29.6 pg (27-33); Mean Platelet Volume 11.6 fL (7.4-10.4); Monocytes # 1.6 10^3/uL (0.2-0.9); Monocytes % 10.4 %; Neutrophils % 70.9 %; Nucleated Red Blood Cells % 0 %; Platelet Count 330 10^3/cmm (157-399); Red Blood Count 5.48 10^6/uL (3.85-5.65); Red Cell Distribution Width 12.4 % (12.1-15.1); White Blood Count 15.51 10^3/uL (3.29-11.43)
[2024-06-09 19:01] LABS: SARS Covid-2 Antigen negative (Negative)
[2024-06-09 19:03] LABS: Influenza A by IFA Negative (Negative); Influenza B by IFA Negative (Negative)
[2024-06-09 19:08] LABS: Alanine Aminotransferase 86 U/L (0-41); Albumin Level 3.9 g/dL (3.5-5.2); Alkaline Phosphatase 123 U/L (40-130); Aspartate Amino Transferase 50 U/L (0-40); Blood Urea Nitrogen 8 mg/dL (6-20); C Reactive Protein 125.8 mg/L (0.0-4.9); Calcium 9.2 mg/dL (8.5-10.5); Carbon Dioxide 25 mmol/L (22-29); Chloride 98 mmol/L (98-107); Creatinine Clr Calc Pharmacy 173.0074; Globulin 3.5 g/dL (1.3-4.6); Glomerular Filtration Rate 107.6 mL/min (90-130); Glucose 112 mg/dL (65-115); Osmolality Calculated 279 mOsm/kg (285-295); Sodium 135 mmol/L (136-145); Total Bilirubin 1.1 mg/dL (0.15-1.2); Total Protein 7.4 g/dL (6.6-8.7); Uric Acid 8.3 mg/dL (3.4-7.0)
[2024-06-09 19:09] LABS: Lactic Sepsis W/Reflex 2.2 mmol/L (0.5-2.2)
[2024-06-09] MEDS: methylPREDNISolone sod succ 125 mg/2 mL INJ IVP (19:52)
[2024-06-09] MEDS: ketorolac 30 mg/mL INJ IVP (19:52)
[2024-06-09 20:04] VITALS: BP 130/83; PULSE 107; RESP 16; O2SAT 92
[2024-06-09 20:34] LABS: Reflex Lactate Order REFLEX LACTIC ORDERD
== END 2024-06-09 20:06 | disposition home or self-care (01) ==
PROVIDERS: Emergency Provider Physician Assistant
DX: M10.9 Gout, unspecified (principal); Z11.52 Encounter for screening for COVID-19
CPT/HCPCS: 36415; 80053; 83605; 84550; 85025; 86140; 87426; 87804; 96374; 96375; 99284; J1885; J2919